=== PATIENT | female | born 1960 | race Caucasian/White ===

== ENCOUNTER 2022-06-24 13:41 | Inpatient (IN) | payer OTHER ==
[~2022-06-24] VITALS: Ht 165.1 cm; Wt 170.4 kg
[2022-06-24 14:10] LABS: BASO % 0.2 % (0.0-2.0); EOS # 0.1 K/mm3 (0.0-0.7); EOS % 1.4 % (0.0-4.0); GRAN # 5.3 K/mm3 (1.4-6.5); GRAN % 62.8 % (42.2-75.2); HEMOGLOBIN 15.5 g/dl (12.5-16.0); LYMPH # 2.5 K/mm3 (1.2-3.4); LYMPH % 28.9 % (20.0-51.0); MEAN CELL VOLUME 88 fl (80.0-100.0); MEAN CORPUSCULAR HEMOGLOBIN 30 pg (27-31); MEAN CORPUSCULAR HGB CONC 34 g/dl (33.0-37.0); MEAN PLATELET VOLUME 10.8 fl (7.4-10.4); MONO # 0.6 K/mm3 (0.1-0.6); MONO % 6.5 % (1.7-9.3); PLATELET COUNT 202 K/mm3 (130-400); RED BLOOD COUNT 5.24 M/mm3 (4.10-5.30); REDCELL DISTRIBUTION WIDTH-CV 12.4 % (11.5-14.5)
[2022-06-24 14:17] LABS: PROTHROMBIN TIME 11.4 SECONDS (9.7-12.8)
[2022-06-24 14:28] LABS: ALBUMIN 3.7 gm/dL (3.4-4.8); BILIRUBIN,TOTAL 0.6 mg/dL (0.2-1.2); CALCIUM 9.5 mg/dL (8.4-10.2); CREATININE, serum 0.87 mg/dL (0.57-1.11); POTASSIUM 4.1 mmol/L (3.5-4.5)
[2022-06-24 14:34] LABS: TROPONIN-I 0.013 ng/mL (0.00-0.033)
[2022-06-24 18:19] VITALS: BP 166/88; PULSE 94; TEMP 98.3
[2022-06-24 19:12] VITALS: BP 156/86; PULSE 92; TEMP 97.9
[2022-06-24 23:27] VITALS: BP 142/67; PULSE 83; TEMP 98
[2022-06-25 03:14] VITALS: BP 144/74; PULSE 73; TEMP 97.9
[2022-06-25 06:48] LABS: CHOLESTEROL RISK RATIO 3.9
[2022-06-25 07:30] VITALS: BP 148/62; PULSE 76; TEMP 98.1
[2022-06-25 11:47] VITALS: BP 130/73; PULSE 87; TEMP 97.4
[2022-06-25 16:22] VITALS: BP 128/65; PULSE 84; TEMP 98.1
[2022-06-25 21:09] VITALS: BP 157/85; PULSE 103; TEMP 98
[2022-06-26] VITALS (8 sets, daily range): BP systolic 97–154; BP diastolic 47–68; PULSE 62–84; TEMP 97.4–98.2
[2022-06-26 02:08] LABS: COLLECTION METHOD CLEAN CATCH
[2022-06-26 02:15] LABS: BUDDING YEAST Present (NOT PRESENT); MUCOUS Present (NOT PRESENT); URINE BACTERIA Many /hpf (NONE SEEN)
[2022-06-26 02:16] LABS: URINE APPEARANCE Cloudy (CLEAR/HAZY); URINE BLOOD TRACE-INTACT (NEGATIVE); URINE COLOR Amber (YELLOW); URINE GLUCOSE TRACE (NEGATIVE); URINE KETONE TRACE (NEGATIVE); URINE NITRATE Positive (NEGATIVE); URINE PROTEIN(semi-quant) TRACE (NEGATIVE); URINE UROBILINOGEN 0.2 E.U/dL (0.2-1.0)
[2022-06-26 11:36] LABS: CALCIUM 9.2 mg/dL (8.4-10.2); CREATININE, serum 0.84 mg/dL (0.57-1.11); MAGNESIUM 1.7 mg/dL (1.6-2.6); POTASSIUM 4.1 mmol/L (3.5-4.5)
[2022-06-26 11:56] LABS: THYROID STIMULATING HORMONE 1.209 uIU/mL (0.350-4.940)
[2022-06-27] VITALS (8 sets, daily range): BP systolic 115–135; BP diastolic 34–68; PULSE 55–74; TEMP 97.6–98.5
[2022-06-27 06:45] LABS: BASO % 0.4 % (0.0-2.0); EOS # 0.2 K/mm3 (0.0-0.7); EOS % 2.1 % (0.0-4.0); GRAN # 5.3 K/mm3 (1.4-6.5); GRAN % 51.3 % (42.2-75.2); HEMATOCRIT 40.6 % (37.0-47.0); LYMPH % 38.6 % (20.0-51.0); MEAN CELL VOLUME 91 fl (80.0-100.0); MEAN CORPUSCULAR HGB CONC 33 g/dl (33.0-37.0); MEAN PLATELET VOLUME 11.8 fl (7.4-10.4); MONO # 0.8 K/mm3 (0.1-0.6); MONO % 7.4 % (1.7-9.3); PLATELET COUNT 206 K/mm3 (130-400); RED BLOOD COUNT 4.48 M/mm3 (4.10-5.30); REDCELL DISTRIBUTION WIDTH-CV 12.8 % (11.5-14.5)
[2022-06-27 06:48] LABS: HEMOGLOBIN 13.2 g/dl (12.5-16.0); MEAN CORPUSCULAR HEMOGLOBIN 29 pg (27-31)
[2022-06-27 06:55] LABS: CALCIUM 8.8 mg/dL (8.4-10.2); CREATININE, serum 0.82 mg/dL (0.57-1.11); POTASSIUM 3.6 mmol/L (3.5-4.5)
[2022-06-28 04:53] VITALS: BP 116/54; PULSE 78; TEMP 97.9
[2022-06-28 06:33] LABS: BASO % 0.5 % (0.0-2.0); EOS # 0.2 K/mm3 (0.0-0.7); EOS % 2.6 % (0.0-4.0); GRAN % 49.4 % (42.2-75.2); HEMATOCRIT 41.5 % (37.0-47.0); HEMOGLOBIN 13.9 g/dl (12.5-16.0); LYMPH # 3.2 K/mm3 (1.2-3.4); LYMPH % 39.9 % (20.0-51.0); MEAN CELL VOLUME 89 fl (80.0-100.0); MEAN CORPUSCULAR HEMOGLOBIN 30 pg (27-31); MEAN CORPUSCULAR HGB CONC 34 g/dl (33.0-37.0); MEAN PLATELET VOLUME 11.9 fl (7.4-10.4); MONO # 0.6 K/mm3 (0.1-0.6); MONO % 7.4 % (1.7-9.3); PLATELET COUNT 208 K/mm3 (130-400); RED BLOOD COUNT 4.69 M/mm3 (4.10-5.30); REDCELL DISTRIBUTION WIDTH-CV 12.6 % (11.5-14.5)
[2022-06-28 06:50] LABS: CALCIUM 8.9 mg/dL (8.4-10.2); CREATININE, serum 0.9 mg/dL (0.57-1.11); POTASSIUM 3.6 mmol/L (3.5-4.5)
[2022-06-28 07:29] VITALS: BP 113/77; PULSE 80; TEMP 97.6
[2022-06-28 11:14] VITALS: BP 131/33; BP 131/83; PULSE 70; TEMP 97.9
[2022-06-28] MEDS ORDERED: ELIQUIS 5MG PO (12:13)
[2022-06-28] MEDS ORDERED: CORDARONE200 MG/TAB PO (12:13)
[2022-06-28] MEDS ORDERED: LIPITOR 40MG TA40 MG PO (12:13)
[2022-06-28] MEDS ORDERED: TOPROL XL 25MG25 MG PO (12:13)
[2022-06-28] MEDS ORDERED: GLUCOPHAGE1000 MG PO (12:14)
[2022-06-28] MEDS ORDERED: ASPIRIN 81M81 MG/TA2 PO (12:14)
[2022-06-28] MEDS ORDERED: ZESTRIL 10MG10 MG PO (12:14)
[2022-06-28] MEDS ORDERED: LEVEMIR100 U/ML SQ (12:14)
[2022-06-28] MEDS ORDERED: INSULIN AS100 UNIT/2 SQ (12:15)
== END 2022-06-28 13:20 | DRG 65 ==
LOC: COL.ER 13:41 → MEDICAL 16:37
PROVIDERS: Nurse Practitioner; Physician Assistant; ADMIT Internal Medicine
DX: I63.81 Other cerebral infarction due to occlusion or stenosis of small artery (principal); I69.351 Hemiplegia and hemiparesis following cerebral infarction affecting right dominant side; N39.0 Urinary tract infection, site not specified; Z68.44 Body mass index [BMI] 60.0-69.9, adult; Z66 Do not resuscitate; I48.91 Unspecified atrial fibrillation; I10 Essential (primary) hypertension; I16.0 Hypertensive urgency; E66.01 Morbid (severe) obesity due to excess calories; B96.20 Unspecified Escherichia coli [E. coli] as the cause of diseases classified elsewhere; R29.700 NIHSS score 0; E11.40 Type 2 diabetes mellitus with diabetic neuropathy, unspecified; Z79.01 Long term (current) use of anticoagulants; Z79.82 Long term (current) use of aspirin; Z79.4 Long term (current) use of insulin; Z23 Encounter for immunization
CPT/HCPCS: A9575; J0696; J1815; J2704

== ENCOUNTER 2022-06-28 13:04 | Inpatient (IN) | payer OTHER ==
[~2022-06-28] VITALS: Ht 165.1 cm; Wt 160.8 kg
--- NOTE | 2022-06-28 13:00 | NUR ---
Pt arrives to IPR room 339 from Medical via WC. Pt Ox4, VSS. IV to RFA intact, flushes easily. Telemetry remains, pt continues in Afib per hall monitor. Pt reports weakness and pain to R arm/leg, has difficulty standing or bearing weight on R leg and reports being scared that she is going to fall. Pt is max 2A for pivot transfer to [facility] Pt eating and drinking well. Is incontinent of bladder but states that she knows she needs to go, that it's urge incontinence.
[~2022-06-28 13:04] MED LIST: ASPIRIN 81M81 MG/TA2 PO; CORDARONE200 MG/TAB PO; ELIQUIS 5MG PO; GLUCOPHAGE1000 MG PO; INSULIN AS100 UNIT/2 SQ; LEVEMIR100 U/ML SQ; LIPITOR 40MG TA40 MG PO; TOPROL XL 25MG25 MG PO; ZESTRIL 10MG10 MG PO
[2022-06-28 17:44] VITALS: BP 141/54; PULSE 81; TEMP 98.6
--- NOTE | 2022-06-28 21:00 | NUR ---
PT A&OX4. SLURRED SPEECH. RT SIDED WEAKNESS. ABLE TO MOVE ARM. NO FINE MOTOR SKILLS. PT INCONTINENT URINE. PLACED PUREWICK FOR THE NIGHT. ACCUCHECK 193. SEE MAR FOR SSI. NO PAIN AT THIS TIME. CALL LIGHT IN REACH. REVIEWED TONIGHT PLAN FOR SSI AND LONG ACTING INSULIN W/RATIONALE.
[2022-06-28 23:13] VITALS: BP 100/52; PULSE 69; TEMP 97.5
[2022-06-29 03:53] VITALS: BP 118/81; PULSE 72; TEMP 97.7
[2022-06-29 07:45] VITALS: BP 154/89; PULSE 88; TEMP 97.7
--- NOTE | 2022-06-29 10:00 | NUR ---
Pt Ox4, VSS, telemetry continues afib/aflutter HR 90's. Pt with c/o intermittent severe pain to R arm and leg, especially when attempting to use it. Continues to have weakness to R side, difficulty standing and keeping balance. Pt is very emotional which also causes her to be more emotional. 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
[2022-06-29 11:26] VITALS: BP 130/79; PULSE 85; TEMP 97.3
--- NOTE | 2022-06-29 14:44 | NUR ---
SW met with the patient to complete intake, as the patient is new to [facility]. The patient lives alone in [place]. She reports independence with ADLs before hospitalization and does not have any DME. The patient reports that she has not been established with a primary care doctor yet. She obtains her medications from [facility]. The patient does not have a DPOA-HC, but she was interested in obtaining a form. LEONOR provided. The patient states that she is not , does not have any children, and her parents are not alive. She states that she has two siblings: Sg (ph#[phone], [place]) and Jurgen (ph#[phone], [place]). The patient shares that she is sleepy and this is the first day she has done all three disciplines and that she threw up afterwards. She had no concerns for SW at this time.
--- NOTE | 2022-06-29 15:51 | NUR ---
Has lack of transportation kept you from medical appts, meetings, work, or from getting things needed for daily living? NO How often do you feel lonely or isolated from those around you? SOMETIMES Over the past 5 days, how much of the time has pain made it hard for you to sleep? RARELY OR NOT AT ALL Over the past 5 days, how often have you limited your participation in therapy due to pain? RARELY OR NOT AT ALL Over the past 5 days, how often have you limited your day-to-day activities because of pain? RARELY OR NOT AT ALL Have you had 2 or more falls in the past year or any fall with an injury? NO Did you have major surgery during the 100 days prior to admission? NO
[2022-06-29 16:00] VITALS: BP 119/52; PULSE 79; TEMP 97.4
[2022-06-29 19:33] VITALS: BP 106/66; PULSE 87; TEMP 97.7
--- NOTE | 2022-06-29 19:57 | NUR ---
MAX 2 ASSIST PIVOT TRANSFER TO BS. HAD LARGE INCONTINENT EXPLOSIVE DIARRHEA. PT WEEPING AND FRUSTRATED. CLEANED UP. LINENS CHANGED. BACK TO BED. 911 DISPATCHER PLACING PUREWICK FOR THE NIGHT. PT HAS MULTIPLE SCABBED SCRATCHES ON ARM AND LOWER LEGS. PT REPORTS HER KITTENS HAVE SCRATCH HER. PT TEAACHING REGARDING IMPORTANCE OF FOOT CARE AND FREQUENT ASSESSMENTS R/T DIABETES. CALL LIGHT IN REACH. BED ALARM SET.
--- NOTE | 2022-06-29 21:56 | NUR ---
PT RESTING IN BED. SEE MAR FOR SSI GIVEN. READY TO SLEEP. CALL LIGHT IN REACH. BED ALARM SET.
[2022-06-29 23:24] VITALS: BP 137/67; PULSE 95; TEMP 97.8
[2022-06-30] VITALS (8 sets, daily range): BP systolic 115–150; BP diastolic 49–83; PULSE 73–106; TEMP 97.3–99.1
--- NOTE | 2022-06-30 10:12 | NUR ---
Provided pt w/ Stroke Education Booklet to assist w/ understanding her stroke & better coping w/ deficits. Pt was greatful & would try to look at it this weekend. Provided support & encouragement.
--- NOTE | 2022-06-30 19:22 | NUR ---
RECEIVED CHANGE OF SHIFT REPORT FROM DAY SHIFT RN. PATIENT IN BED DURING REPORT, EXIT ALARM ON, CALL LIGHT IN REACH.
[2022-07-01 04:50] VITALS: BP 142/73; PULSE 81; TEMP 97.4
--- NOTE | 2022-07-01 07:15 | NUR ---
CHANGE OF SHIFT REPORT GIVEN TO DAY SHIFT RNVELVET.
[2022-07-01 07:55] VITALS: BP 137/74; PULSE 81; TEMP 98.9
--- NOTE | 2022-07-01 08:04 | NUR ---
Shift report received from food mixer assembler RN. Pt is lying supine in bed w/ HOB elevated to approx 30 degrees. Pt is tearful and reporting RUE/LE pain. Scheduled gabapentin given. Pt denies other needs. Call light is in her reach. Bed alarm is on. Will continue to monitor.
--- NOTE | 2022-07-01 09:04 | NUR ---
Pt is off the unit for PT
--- NOTE | 2022-07-01 11:20 | NUR ---
Pt back in room after PT/OT. 2 person assist required for pt to transfer back to bed using a FWW, gait belt. Pt reporting right hip pain and is tearful. Tylenol given per PRN order. Pt positioned supine and is now talking on her cell phone with a friend. She denies additional needs. Call light is in her reach. Bed alarm is on.
[2022-07-01 11:52] VITALS: BP 121/42; PULSE 74; TEMP 98.2
[2022-07-01 15:53] VITALS: BP 122/52; PULSE 71; TEMP 97.3
--- NOTE | 2022-07-01 16:46 | NUR ---
Pt sitting up in bed waiting for dinner. She reports that she "doesn't hurt too much" at this time. She denies additional needs. Call light is in her reach. Bed alarm is on.
--- NOTE | 2022-07-01 17:27 | NUR ---
Pt refusing dinner tray. She would instead like 3-4 pieces of toast - order placed for pt. Pt currently drinking chocolate Glucerna. Other needs denied. Call light is in her reach.
[2022-07-01 19:08] VITALS: BP 120/53; PULSE 78; TEMP 98.2
--- NOTE | 2022-07-01 19:23 | NUR ---
RECEIVED CHANGE OF SHIFT REPORT FROM DAY SHIFT RN. PATIENT RESTING IN BED, EXIT ALARM ON, CALL LIGHT IN REACH.
--- NOTE | 2022-07-01 20:52 | NUR ---
PATIENT VOMITED LARGE AMOUNT OF SEMILUMPY GREYISH EMESIS AFTER INITIALLY REPORTED SOME "UNSETTLED" STOMACH COMPLAINTS BUT REFUSED ZOFRAN. REPORTS HAD BEEN PASSING FLATUS INTERMITTELY.
[2022-07-01 21:29] VITALS: BP 127/64; PULSE 75; TEMP 98.1
--- NOTE | 2022-07-01 21:35 | NUR ---
ONCALL PROVIDER INFORMED OF PATIENT'S SUDDEN ONSET OF EMESIS, RECENT VS REPORTED, AND PATIENT CURRENT STATUS OF NO FURTHER NAUSEA BUT REPORTS FEELING VERY TIRED, DENIES CHILLING/CHEST PAIN/SOA/PASSING FLATUS, ABD SOFT TO PALP AND RECENT LUNG ASSESSMENT OF EXP WHEEZING OBSERVED AND THAT ZOFRAN ODT GIVEN. ORDERS GIVEN TO HOLD SSI INSULIN FOR THIS DOSING BUT OKAY TO GIVE LEVEMIR.
[2022-07-01 21:59] LABS: BASO % 0.2 % (0.0-2.0); EOS # 0.2 K/mm3 (0.0-0.7); EOS % 1.7 % (0.0-4.0); GRAN # 7.6 K/mm3 (1.4-6.5); GRAN % 67.4 % (42.2-75.2); HEMATOCRIT 42.5 % (37.0-47.0); HEMOGLOBIN 14.4 g/dl (12.5-16.0); LYMPH # 2.5 K/mm3 (1.2-3.4); LYMPH % 22.3 % (20.0-51.0); MEAN CELL VOLUME 87 fl (80.0-100.0); MEAN CORPUSCULAR HEMOGLOBIN 30 pg (27-31); MEAN CORPUSCULAR HGB CONC 34 g/dl (33.0-37.0); MONO # 0.9 K/mm3 (0.1-0.6); MONO % 8.3 % (1.7-9.3); PLATELET COUNT 212 K/mm3 (130-400); RED BLOOD COUNT 4.86 M/mm3 (4.10-5.30); REDCELL DISTRIBUTION WIDTH-CV 12.6 % (11.5-14.5)
[2022-07-01 22:13] LABS: CALCIUM 9.1 mg/dL (8.4-10.2); CREATININE, serum 0.85 mg/dL (0.57-1.11); POTASSIUM 4.3 mmol/L (3.5-4.5)
--- NOTE | 2022-07-02 00:35 | NUR ---
SPOKE WITH PROVIDER REGARDING LABS AND CXR, NO CHANGES ORDERS AT THIS TIME. PATIENT RESTING IN BED, BREATHING NONLABORED.
[2022-07-02 00:37] VITALS: BP 143/64; PULSE 82; TEMP 98.1
[2022-07-02 03:10] VITALS: BP 139/63; PULSE 83; TEMP 97.9
--- NOTE | 2022-07-02 06:42 | NUR ---
CHANGE OF SHIFT REPORT GIVEN TO DAY SHIFT RNVELVET. PATIENT SLEEPING DURING REPORT, EXIT ALARM ON WITH CALL LIGHT IN REACH.
--- NOTE | 2022-07-02 06:52 | NUR ---
Shift report received from maintenance mechanic 2nd shift RN. Pt awoke easily from sleeping. She denies abd. pain/discomfort. Denies nausea and other needs. Call light is in her reach. Bed alarm is on.
[2022-07-02 07:06] VITALS: BP 150/63; PULSE 74; TEMP 97.9
--- NOTE | 2022-07-02 07:43 | NUR ---
Pt refusing her breakfast tray. She stated that she "took a few bites and it just isn't tasting good". Glucerna and diet Sprite given. Pt continues to deny abd. pain and nausea. Will continue to monitor.
--- NOTE | 2022-07-02 09:01 | NUR ---
Pt requesting to use the bedside commode. Pt required moderate asst x 2 people to transfer from bed to commode and back to bed. Pt was continent of a large, watery BM. Stool spec sent to lab for previously ordered GI Panel. Pt continues to deny nausea, abd. pain. Abd. is soft, NT, w/ active BS x 4. Pt reporting right hip pain - Tylenol given per PRN order. She denies additional needs. Call light is in her reach. Bed alarm is on.
[2022-07-02 11:11] LABS: CLOSTRIDIUM DIFF A/B NEG
[2022-07-02 11:25] VITALS: BP 143/60; PULSE 81; TEMP 97.4
--- NOTE | 2022-07-02 11:36 | NUR ---
Pt sleeping supine in bed. HOB elevated to approx 30 degrees. No further vomiting or watery stools so far. Call light is in her reach. Bed alarm is on. C. Diff test result is still pending.
--- NOTE | 2022-07-02 12:28 | NUR ---
Pt refusing lunch (veg. soup, pulled pork sandwich, june slaw). States the food does not taste good. Pt agreeable to eating toast - order placed. Glucerna and diet Sprite given. Encouraged pt to increase fluid intake. C. Diff. cx negative. Pt continues to deny nausea or abd. pain. Abd remains soft, NT, with active BS x 4. She denies additional needs. Call light is in her reach. Bed alarm is on.
--- NOTE | 2022-07-02 14:40 | NUR ---
Pt sitting up in bed. She drank 100% of glucerna and has eaten 1/2 a piece of toast. Pt continues to deny abd. pain or nausea. No further vomiting episodes or watery stools. Pt has 2 visitors in her room and denies additional needs. Call light is in her reach. Bed alarm is on.
[2022-07-02 15:17] VITALS: BP 129/70; PULSE 80; TEMP 97.8
--- NOTE | 2022-07-02 15:29 | NUR ---
Pt's brother and daughter expressing concerns about pt's right hand position when she is bed. They are concerned that her right hand tends to stay in a "claw" postion vs. having the fingers extended. They are wondering if there is a splint that pt could wear while in bed to keep her fingers in an extended position. Foam arm support placed under RUE for pt to try for now. Will pass on during shift report to mention to PT/OT tomorrow (Sunday).
--- NOTE | 2022-07-02 16:21 | NUR ---
Pt sitting up in bed. Pt eating saltine crackers. Pt denies pain and denied Tylenol when offered. She also denies abd. pain, nausea. No other needs at this time. Call light is in her reach. Bed alarm is on.
--- NOTE | 2022-07-02 18:27 | NUR ---
Hospitalist in to see pt. Pt reported nausea. Zofran given per PRN order.
[2022-07-02 20:19] VITALS: BP 140/72; PULSE 86; TEMP 98.3
[2022-07-03] VITALS (7 sets, daily range): BP systolic 112–149; BP diastolic 58–76; PULSE 78–89; TEMP 97.9–98.3
--- NOTE | 2022-07-03 07:05 | NUR ---
BEDSIDE REPORT DONE ORDER WITH NIGHT NURSE LIGIA
--- NOTE | 2022-07-03 08:40 | NUR ---
ASSESSMENT DONE ORDER. PATIENT IS ALERT AND ORIENTED BUT VERY TEARFULL. PATIENT STATED THAT HER PAIN IS HIGH 7/10 ON PAIN SCALE AND ITS RIGHT SIDE AND STOMACH AREA. PATIENT STATED SHE STARTED TO VOMITED OVER THE WEEKEND. STILL NOT FEELING WELL. GAVE HER TYLENOL FOR PAIN. DID NOT EAT THIS AM. ONLY TOOK A SMALL BITE OF CRACKLES. LUNG CLEAR IN ALL LOBES. BOWEL SOUND ACTIVE BUT VERY SLOW ACTIVE SOUND.
[2022-07-03 10:13] LABS: BASO % 0.1 % (0.0-2.0); EOS # 0.2 K/mm3 (0.0-0.7); EOS % 1.5 % (0.0-4.0); GRAN # 7.9 K/mm3 (1.4-6.5); GRAN % 67.9 % (42.2-75.2); HEMATOCRIT 42.7 % (37.0-47.0); HEMOGLOBIN 14.6 g/dl (12.5-16.0); LYMPH # 2.5 K/mm3 (1.2-3.4); LYMPH % 21.7 % (20.0-51.0); MEAN CELL VOLUME 88 fl (80.0-100.0); MEAN CORPUSCULAR HEMOGLOBIN 30 pg (27-31); MEAN CORPUSCULAR HGB CONC 34 g/dl (33.0-37.0); MEAN PLATELET VOLUME 11.4 fl (7.4-10.4); MONO % 8.6 % (1.7-9.3); PLATELET COUNT 231 K/mm3 (130-400); RED BLOOD COUNT 4.84 M/mm3 (4.10-5.30); REDCELL DISTRIBUTION WIDTH-CV 12.7 % (11.5-14.5)
[2022-07-03 10:34] LABS: BILIRUBIN,TOTAL 1.1 mg/dL (0.2-1.2); C-REACTIVE PROTEIN 3.13 mg/dL (0.00-0.50); CALCIUM 9.5 mg/dL (8.4-10.2); CREATININE, serum 0.91 mg/dL (0.57-1.11); POTASSIUM 4.6 mmol/L (3.5-4.5); TOTAL PROTEIN 6.5 gm/dL (6.2-8.1); URIC ACID 4.5 mg/dL (2.6-6.0)
[2022-07-03 10:37] LABS: ERYTHROCYTE SEDIMENTATION RATE 20 mm/hr (0-30)
--- NOTE | 2022-07-03 11:08 | NUR ---
LEONOR met with the patient to follow up after the weekend. The patient states that she is not doing too well today. She states that her stomach hurts and her arm and leg are not working right. She provides she feels worse now than when she first came in. She is hopeful to start feeling better soon. SW provided support.
--- NOTE | 2022-07-03 14:52 | NUR ---
Admission QIM scores were reviewed by the team. Code of 2 chosen for toilet transfer was determined by team discussion to be the most usual performance before interventions for this patient during the assessment period. Code of 2 chosen for lower body dressing was determined by team discussion to be the most usual performance before interventions for this patient during the assessment period. Code of 1 chosen for rolling left to right was determined by team discussion to be the most usual performance before interventions for this patient during the assessment period. Code of 3 chosen for sit to lying was determined by team discussion to be the most usual performance before interventions for this patient during the assessment period. Code of 2 chosen for lying to sitting on side of bed was determined by team discussion to be the most usual performance before interventions for this patient during the assessment period. Code of 2 chosen for sit to stand was determined by team discussion to be the most usual performance for this patient during the discharge assessment period. Code of 2 chosen for chair/bed to chair transfer was determined by team discussion to be the most usual performance before interventions for this patient during the assessment period.--Chastity Paul, PD
--- NOTE | 2022-07-03 18:28 | NUR ---
PATIENT WAS COMPLAINING OF PAIN THROUGHOUT THE MORNING .REFUSED TO EAT BREAKFAST. HELD ALL MEDICATION UNTIL SHE ATE SOMETHING. SPOKE WITH DOCTOR WHO ORDER XRAY ON STOMACH AND HIP. LABS FOR GOUT. NEW MEDICATIONW ORDER. PATIENT HAS BEEN EATING TOAST X 2 WHICH HAS HELP. ZOFRAN WAS USE X 1 TODAY.
[2022-07-04 02:58] VITALS: BP 122/48; PULSE 76; TEMP 97.8
--- NOTE | 2022-07-04 06:51 | NUR ---
BEDSIDE REPORT DONE ORDER WIT NIGHT NURSE
[2022-07-04 07:27] VITALS: BP 133/55; PULSE 89; TEMP 98.6
--- NOTE | 2022-07-04 10:56 | NUR ---
ASSESSMENT DONE ORDER .PATIENT ALERT AND ORIENTED BUT HAVE BEEN HAVING ALOT OF PAIN TODAY. NEW ORDER FOR LORATAB JORDON MEDICATION AND HEART MEDICATION WAS DONE. EKG WAS DONE SINCE THE PATIENT HAD CHEST PAIN. TROPONIN WAS DONE TOO. ALL CAME BACK NORMAL.
[2022-07-04 11:34] VITALS: BP 119/64; PULSE 88; TEMP 98.3
[2022-07-04 16:11] VITALS: BP 107/47; PULSE 86; TEMP 97.7
--- NOTE | 2022-07-04 17:15 | NUR ---
PATIENT USE COMMONDE TODAY BUT WITH 3 PERSON(MAX ASSISTANCE) PATIENT DID WELL WITH MINIMAL PAIN. LAST DOSE OF PAIN MEDICATION WAS AROUND 3PM. PATIENT HAD A REALLY GOOD NAP TODAY. EATING ABOUT 80-100% OF HER FOOD NOW.
--- NOTE | 2022-07-04 19:00 | NUR ---
RECEIVED CHANGE OF SHIFT REPORT FROM DAY SHIFT RN.
[2022-07-04 20:15] VITALS: BP 134/51; PULSE 70; TEMP 97.6
[2022-07-04 23:46] VITALS: BP 117/42; PULSE 75; TEMP 97.6
[2022-07-05 04:22] VITALS: BP 120/49; PULSE 70; TEMP 98.4
--- NOTE | 2022-07-05 06:53 | NUR ---
BEDSIDE REPORT DONE ORDER WITH MICHAEL
--- NOTE | 2022-07-05 07:11 | NUR ---
CHANGE OF SHIFT REPORT GIVEN TO DAY SHIFT RNROSELINE.
[2022-07-05 07:36] VITALS: BP 112/59; PULSE 81; TEMP 97.8
--- NOTE | 2022-07-05 10:32 | NUR ---
ASSESSMENT DONE ORDER. PATIENT ALERT AND ORIENTED X 4. FINESSE CONTINUE TO HAVE PAIN 6-7/10 AND PAIN MEDICATION HAS BEEN HELPING. LUNG CLEAR, BOWEL SUOND ACTIVE. NO CHEST PAIN TODAY. EATING ABOUT 80-100% OF HER FOOD.
[2022-07-05 11:54] VITALS: BP 107/67; PULSE 84; TEMP 97.9
--- NOTE | 2022-07-05 12:50 | NUR ---
GAVE PATIENT JA TO HELP WTIH N/V.
--- NOTE | 2022-07-05 12:59 | NUR ---
patient vomited x 1 while eating lunch. offer zofran but patient refused and said she is not nauseas but will try and continue to eat her food but in small bites
--- NOTE | 2022-07-05 14:31 | NUR ---
LEONOR met with the patient to present and review the IPR Team Conference Note. The team plans to re-evaluate the patient next Sunday. The patient is in agreement to the plan. She shares that she is still not feeling great and threw up this morning. SW provided support.
[2022-07-05 16:20] VITALS: BP 140/56; PULSE 79; TEMP 97.6
--- NOTE | 2022-07-05 16:34 | NUR ---
RECEIVED ORDER TO D/C TELE. I ALSO D/C IV SITE SINCE THE IV WAS NOT IN PLACE ANYMORE. INFORM DOCTOR ABOUT IT.
--- NOTE | 2022-07-05 16:38 | NUR ---
JA QUINONEZ, PATIENT HAS BEEN RESTING SINCE GIVEN THE MEDICATION
--- NOTE | 2022-07-05 19:00 | NUR ---
RECEIVED CHANGE OF SHIFT REPORT FROM DAY SHIFT RN. RESTING IN BED DURING REPORT WITH EXIT ALARM ON, CALL LIGHT IN REACH.
[2022-07-06 05:08] VITALS: BP 136/66; PULSE 88; TEMP 97.9
--- NOTE | 2022-07-06 07:09 | NUR ---
Shift report received from warehouse worker 2nd shift RN.
--- NOTE | 2022-07-06 07:11 | NUR ---
CHANGE OF SHIFT REPORT GIVEN TO DAY SHIFT RNVELVET.
--- NOTE | 2022-07-06 07:59 | NUR ---
Pt resting supine in bed w/ HOB elevated. She ate approx 50% of breakfast independently. Pt tearful this morning and reporting right hip, right knee, left ankle pain. Voltaren gel applied as ordered. PRN [place] given. Pt denies nausea, abd. pain. Call light is in her reach. Bed alarm is on.
--- NOTE | 2022-07-06 08:34 | NUR ---
ST in room working w/ pt. Pt reports no pain relief in right hip, right knee, left ankle. Additional [place] given per PRN order. Will continue to monitor.
--- NOTE | 2022-07-06 10:20 | NUR ---
Pt required max 2 asst to transfer to wheelchair. OT in room to work w/ pt. Initial dose of Prednisone given. Pt medication education sheet given to pt. Side effects discussed. Pt continues to report Rt. hip pain and rt. knee pain. Hip xr still pending.
[2022-07-06 12:07] LABS: BASO % 0.3 % (0.0-2.0); EOS # 0.3 K/mm3 (0.0-0.7); EOS % 2.2 % (0.0-4.0); GRAN # 8.7 K/mm3 (1.4-6.5); GRAN % 75.4 % (42.2-75.2); HEMATOCRIT 39.8 % (37.0-47.0); HEMOGLOBIN 13.6 g/dl (12.5-16.0); LYMPH # 1.7 K/mm3 (1.2-3.4); LYMPH % 15.1 % (20.0-51.0); MEAN CELL VOLUME 88 fl (80.0-100.0); MEAN CORPUSCULAR HEMOGLOBIN 30 pg (27-31); MEAN CORPUSCULAR HGB CONC 34 g/dl (33.0-37.0); MEAN PLATELET VOLUME 11.1 fl (7.4-10.4); MONO # 0.8 K/mm3 (0.1-0.6); MONO % 6.7 % (1.7-9.3); PLATELET COUNT 248 K/mm3 (130-400); RED BLOOD COUNT 4.54 M/mm3 (4.10-5.30); REDCELL DISTRIBUTION WIDTH-CV 12.6 % (11.5-14.5)
[2022-07-06 12:19] LABS: CALCIUM 9.2 mg/dL (8.4-10.2); CREATININE, serum 0.93 mg/dL (0.57-1.11); POTASSIUM 4.8 mmol/L (3.5-4.5)
--- NOTE | 2022-07-06 13:06 | NUR ---
Rt hip XR completed. Pt requesting pain medication post XR and before PT in 45 minutes. [place] given per PRN order for pain of 7/10. Pt resting supine w/ HOB elevated to 30 degrees. Denies other needs. Call light is in her reach. Bed alarm is on.
--- NOTE | 2022-07-06 14:41 | NUR ---
Pt back in her room after PT. She is sitting up in the wheelchair and would like to sit up for awhile. Pt reports she feels less RLE/Hip pain while she is sitting up. She declined sitting in the recliner. Pt denies other needs. Call light is in her reach. Chair alarm is on.
[2022-07-06 17:17] VITALS: BP 132/71; PULSE 88; TEMP 97.8
--- NOTE | 2022-07-06 18:40 | NUR ---
Pt assisted from wheelchair to bed using 2 person asst, BECKA. Pt resting supine. Incontinence care provided after pt noted to be incontinent of urine. Pure wick applied. Pt denies the need for pain medication at this time. Denies nausea or abd. pain. Denies additional needs. Call light is in her reach. Bed alarm is on.
--- NOTE | 2022-07-06 19:07 | NUR ---
RECEIVED CHANGE OF SHIFT FROM DAY SHIFT RN.
--- NOTE | 2022-07-06 20:00 | NUR ---
WEAKNESS TO RUE AND RLE, REPORTS PAIN TO L ANKLE/R KNEE/R THUMB/R UPPER ARM WITH MOVEMENT. DENIES CHEST PAIN/SOA/NAUSEA AT THIS TIME. PURE WICK IN PLACE, NO URINE OUTPUT OBSERVED AT THIS TIME. DENIES DISCOMFORT BUT AGREED TO TAKE PAIN MEDS WITH HS MEDS FOR COMFORT WITH SLEEP.
--- NOTE | 2022-07-07 00:33 | NUR ---
PATIENT SLEEPING, EXIT ALARM ON WHEN IN BED OR UP IN CHAIR WITH CALL LIGHT IN REACH. CURRENTLY WITH SLEEP, DOES NOT WAKE DURING NURSING ROUNDS.
[2022-07-07 05:57] VITALS: BP 134/68; PULSE 69; TEMP 99.3
--- NOTE | 2022-07-07 06:54 | NUR ---
CHANGE OF SHIFT REPORT GIVEN TO DAY SHIFT RNVELVET.
--- NOTE | 2022-07-07 07:07 | NUR ---
Shift report received from final expense agent RN.
--- NOTE | 2022-07-07 07:57 | NUR ---
Pt sitting up in bed eating her breakfast independently. Pt tearful and reporting that sitting up has triggered RUE pain. Pt also reporting RLE pain and Left ankle pain. PRN [place] given. Voltaren gel applied as ordered. Pt denies nausea, abd. pain, chest pain. She denies other needs. Call light is in her reach. Bed alarm is on.
[2022-07-07 09:18] VITALS: TEMP 97.3
--- NOTE | 2022-07-07 11:43 | NUR ---
Pt is sitting up in the wheelchair watching television. She denies pain or discomfort at this time. FSBS 211 - will give SSI per order. No c/o abd. pain or nausea. Call light is in her reach. Chair alarm is on.
[2022-07-07 18:01] VITALS: BP 108/53; PULSE 84; TEMP 97.8
[2022-07-08 06:04] VITALS: BP 130/68; PULSE 72; TEMP 97.8
--- NOTE | 2022-07-08 08:55 | NUR ---
PATIENT ALERT AND ORIENTED X4. VSS. PATIENT HERE FOR CVA. PATIENT DENIES ANY PAIN. ASSESSMENT PERFORMED. AM MEDS ADMINISTERED. PATIENT DENIES ANY FURTHER NEEDS. BED ALARM ACTIVATED. CALL LIGHT IN REACH.
--- NOTE | 2022-07-08 16:08 | NUR ---
PATIENT REFUSED HYGIENE TODAY. WILL RETURN LATER TO PERFORM BED BATH. PATIENT ENCOURAGED TO SIT UP TO CHAIR. PATIENT INSISTED THAT THEY NEEDED TO LIE DOWN. WHEN ASKED THEIR REASONING, PATIENT BECAME TEARFUL AND BEGAN WEEPING. PATIENT EDUCATED ON IMPORTANCE OF GAINING STRENGTH THROUGHOUT STAY ON IPR. PATIENT IN BED, CALL LIGHT IN REACH.
[2022-07-08 18:00] VITALS: BP 125/64; PULSE 84; TEMP 98.2
--- NOTE | 2022-07-08 20:00 | NUR ---
PT VERY DEPRESSED. CRYING FREQUENTLY. PROVIDED EMOTIOBNAL SUPPORT. REMERON FOR ANTIDEPRESSANT. PT TURNED TO CLEAN UP URINARY INCONTINENCE. PT YELLS OUT RT HIP PAIN. CRYING. PUREWICK PLACED. LAST BM WAS 07/02LR WATERY STOOL. ABD SOFT. BS PRESENT. PASSING FLATUS. SEE MAR FOR [place] GIVEN. REPOSITIONED 2;1 ASSIST. CALL LIGHT IN REACH. BED ALARM SET.
[2022-07-09 01:48] VITALS: BP 122/49; PULSE 88; TEMP 98.3
--- NOTE | 2022-07-09 01:48 | NUR ---
PT C/O MID CHEST PAIN. LEVEL 4. NO DYSPNEA. VS 122/[id number]%- 98.3. NOTIFIED ESTEE FIGUEROA. SEE NEW ORDERS.
--- NOTE | 2022-07-09 01:55 | NUR ---
RT HERE FOR EKG.
--- NOTE | 2022-07-09 02:03 | NUR ---
SEE MAR FOR ASA GIVEN. LAB HERE TO DRAW BLOOD FOR TROPONIN. PT RELATES STILL HAVING CHEST PAIN LEVEL 4. UNCHANGED.
--- NOTE | 2022-07-09 02:08 | NUR ---
PT REPORTS CHEST PAIN EASING UP SOME TO LEVEL 2.
--- NOTE | 2022-07-09 02:31 | NUR ---
PUREWICK LEAKING. CHANGED LINENS AND CLEANED UP PT. YELLS OUT IN RT HIP PAIN. REPOSITIONED UP IN BED. PT RELATES CHEST PAIN RESOLVED. CALL VLIGHT IN REACH. BED ALARM SET.
[2022-07-09 05:03] VITALS: BP 123/59; PULSE 87; TEMP 98.1
--- NOTE | 2022-07-09 06:53 | NUR ---
Shift report received from retail shift supervisor RN. Pt sleeping supine in bed. HOB slightly elevated. Resp. even and unlabored. Call light within reach. Bed alarm on.
--- NOTE | 2022-07-09 08:12 | NUR ---
Pt sitting up in bed eating breakfast independently. She reports feeling tired this morning because she didn't sleep well overnight. Pt reports having chest pain during the night but is feeling better. She is reporting right hip, right elbow, and right knee pain at 8/10. [place] given per PRN order. Pt denies additional needs. Call light is in her reach. Bed alarm is on.
--- NOTE | 2022-07-09 10:48 | NUR ---
Pt sitting up in bed watching television. Pt is tearful and reports feeling tired today. Encouraged pt to rest/nap. She denies pain or discomfort. Voltaren gel applied as per order. She denies additional needs. Call light is in her reach. Bed alarm is on.
--- NOTE | 2022-07-09 12:36 | NUR ---
Pt resting supine in bed w/ HOB elevated to approx 30 degrees. Pt ate approx 30% of lunch independently. She denies pain, chest pain, difficultly breathing, nausea, abd. pain. Continues to report feeling tired. Encouraged pt to rest. Pt reported visual hallucinations to hospitalist this morning but states this has resolved. Will continue to monitor. Call light is in her reach. Bed alarm is on.
--- NOTE | 2022-07-09 13:14 | NUR ---
Pt sleeping supine. HOB slightly elevated. Resps are even and unlabored. Call light within reach. Bed alarm is on.
--- NOTE | 2022-07-09 14:58 | NUR ---
Pt resting supine in bed watching television. As nurse was in room, pt was incontinent of urine in bed. Incontinent care provided and clean linens placed on bed. Pt reported "for the first time, my hip doesn't hurt when you move me!". [place] applied at pt's request. Pt denies any further visual hallucinations at this time. She denies additional needs. Call light is in her reach. Bed alarm is on.
--- NOTE | 2022-07-09 16:28 | NUR ---
Pt sitting up in bed watching television. She denies pain/discomfort. Denies chest pain, nausea, headache, visual hallucinations. Discussed w/ pt that the prednisone has been stopped for not in case this was the cause of the hallucinations. Pt voiced understanding. FSBS 243 mg/dL. Will administer SSI per order. She denies additional needs. Call light is in her reach. Bed alarm is on.
[2022-07-09 17:29] VITALS: BP 138/74; PULSE 84; TEMP 98.9
--- NOTE | 2022-07-09 21:00 | NUR ---
PT RESTING IN BED. RT SIDED HEMAPARESIS. ACCUCHECK 242. SSI. PUREWICK IN PLACE. NO PAIN. CALL LIGHT IN REACH. BED ALARM SET.
--- NOTE | 2022-07-09 21:15 | NUR ---
PT RESTING IN BED. WEEPY. DEPRESSED. RT SIDED WEAKNESS. DENIES PAIN. PUREWICK IN PLACE FOR INCONTINENCE. PROVIDED EMOTIONAL SUPPORT. ACCUCHECK 242. SSI GIVEN. CALL LIGHT IN REACH. BED ALARM SET.
[2022-07-10 05:15] VITALS: BP 130/78; PULSE 68; TEMP 97.6
--- NOTE | 2022-07-10 05:54 | NUR ---
ACCUCHECK 85. ASYMPTOMATIC. GAVE A SMALL OJ UNTIL BREAKFAST. REPOSITIONED. NO NEEDS AT THIS TIME. HAD UNEVENTFUL NIGHT.
--- NOTE | 2022-07-10 07:08 | NUR ---
Shift report received from shuttle spotter RN. Pt aroused easily from sleep. She has nearly finished drinking some orange juice after night RN obtained her morning FSBS. Pt denies pain/discomfort. Denies additional needs. Call light is in her reach. Bed alarm is on.
--- NOTE | 2022-07-10 09:55 | NUR ---
PT is off the unit for PT.
--- NOTE | 2022-07-10 12:47 | NUR ---
Pt sitting up in her wheelchair eating lunch. Pillow place beneath RLE for comfort. She denies pain/discomfort, chest pain, nausea, headache. Denies other needs. Call light is in her reach.
--- NOTE | 2022-07-10 14:21 | NUR ---
Pt is back in her room after completing PT for the afternoon. She would like to stay up in her wheelchair for a while longer. She denies pain/discomfort, hallucinations, RAMSAY, chest pain, nausea. Call light is in her reach.
--- NOTE | 2022-07-10 15:57 | NUR ---
Wax Pattern Coater met with Patient in her room to discuss discharge planning. Patient reported that she needs to get better. SW briefed that this SW will follow through treatment in order to coordinate and assist with discharge needs.
--- NOTE | 2022-07-10 16:03 | NUR ---
Pt required 2 person assist to stand from wheelchair and pivot to bed. Pt now resting supine with HOB slightly elevated. Pt was incontinent of urine; incontinence care provided. She denies pain, chest pain, nausea. Denies additional needs. Call light is in her reach. Bed alarm is on.
[2022-07-10 17:28] VITALS: BP 107/41; PULSE 79; TEMP 98.9
--- NOTE | 2022-07-10 18:21 | NUR ---
Pt sleeping supine in bed with HOB slightly elevated. She aroused easily from sleep. Purewick in place with little to no urine output noted yet. Bed is clean and dry. Call light is in her reach. Bed alarm is on.
--- NOTE | 2022-07-10 19:26 | NUR ---
RECEIVED CHANGE OF SHIFT REPORT FROM DAY SHIFT RN.
[2022-07-11 05:37] VITALS: BP 119/65; PULSE 86; TEMP 97.6
--- NOTE | 2022-07-11 06:51 | NUR ---
Shift report received from night cleaner RN. Pt sleeping supine in bed. HOB elevated to approx 30 degrees. Call light in reach. Bed alarm on.
--- NOTE | 2022-07-11 07:05 | NUR ---
CHANGE OF SHIFT REPORT GIVEN TO DAY SHIFT RNVELVET.
--- NOTE | 2022-07-11 08:20 | NUR ---
Pt assisted to BSC and had a continent Lg BM. Pt required 2 person assist to the BSC and then 3 person assist for hygiene and transfer back to bed. Pt tearful and feeling like her BLE are weaker today. She denies BLE pain, chest pain, abd. pain. Pt sitting up in bed eating her breakfast independently. She denies other needs. Call light is in her reach. Bed alarm is on.
--- NOTE | 2022-07-11 14:46 | NUR ---
Pt sitting up the wheelchair visiting with family friends. She denies pain or discomfort. Baclofen and Gabapentin given as scheduled. Pt denies additional needs. Call light is in her reach. Chair alarm is on.
[2022-07-11 17:33] VITALS: BP 118/57; PULSE 78; TEMP 97.5
--- NOTE | 2022-07-11 18:33 | NUR ---
Pt sleeping supine in bed w/ HOB slightly elevated. Pt aroused easily from bed. Bedding is clean and dry. Purewick is turned on. Pt denies pain, chest pain, abd. pain, nausea. Denies other needs. Call light is in her reach. Bed alarm is on.
[2022-07-12 06:05] VITALS: BP 122/72; PULSE 71; TEMP 97.3
--- NOTE | 2022-07-12 07:11 | NUR ---
Shift report received from welder 2nd shift RN.
--- NOTE | 2022-07-12 07:28 | NUR ---
CHANGE OF SHIFT REPORT GIVEN TO DAY SHIFT RNVELVET.
--- NOTE | 2022-07-12 10:59 | NUR ---
OT notifed nurse that pt vomited (food contents, non-bloody) this morning. Emesis was a large amount. Pt denies abdominal pain or nausea. Zofran was given. Pt is currently off the unit for PT/OT
--- NOTE | 2022-07-12 15:44 | NUR ---
Senior Administrative Services Officer met with Patient at bedside to discuss discharge planning. SW collaborated with Patient to review notes provided by the IPR treatment team and identified that discharge will be re-evaluated one week from today. Patient had no concerns for SW. SW will follow.
[2022-07-12 17:22] VITALS: BP 121/43; PULSE 85; TEMP 97.5
--- NOTE | 2022-07-12 21:00 | NUR ---
PT VERY SLEEPY. ACCUCHECK 118. GAVE YOGURT. ATE 100%. VSS. NO COMPLAINTS. PUREWICK IN PLACE FOR INCONTINENCE. CALL LIGHT IN REACH. BED ALARM SET.
[2022-07-13 05:46] VITALS: BP 111/57; PULSE 77; TEMP 97.9
--- NOTE | 2022-07-13 05:57 | NUR ---
ACCUCHECK 81 THIS AM. GAVE OJ TO HOLD OVER TIL BREAKFAST.
--- NOTE | 2022-07-13 06:05 | NUR ---
PT HAD MINIMAL UO THROUGH THE NIGHT. PUREWICK WAS IN PLACE. SHEETS DRY. WILL BLADDER SCAN PT.
--- NOTE | 2022-07-13 06:11 | NUR ---
BLADDER SCAN SHOWED 710[facility] RESIDUAL. BANKING PIN ADJUSTER'S WILL GET PT UP TO BSC TO SEE IF SHE CAN VOID.
--- NOTE | 2022-07-13 06:40 | NUR ---
2:1 ASSIST TO BSC. PT ABLE TO VOID 550CC W/O DIFFICULTY.
--- NOTE | 2022-07-13 06:48 | NUR ---
BEDSIDE REPORT DONE ORDER WITH NIGHT NURSE LIANA
--- NOTE | 2022-07-13 09:45 | NUR ---
ASSESSMENT DONE ORDER. PATIENT ABLE TO GET UP WITH ASSISTANCE TODAY FROM BED TO WHEELCHAIR. STILL NEED HELP TRANSFERING FROM TIME TO TIME. LUNG CLEAR IN ALL LOBES. BOWEL SOUND ACTIVE IN ALL 4 QUADS.
--- NOTE | 2022-07-13 14:55 | NUR ---
Member Of The Legislative Council collaborated with PAtient in a discussion reguarding the application and coverage of Medicaid. Patient requested to be referred to Financial [employer]cel[employer] for assistance with Medicaid molly. SW contacted [employer] who agreed to meet with Patient.
[2022-07-13 17:53] VITALS: BP 129/49; PULSE 93; TEMP 97.6
--- NOTE | 2022-07-13 19:13 | NUR ---
PATIENT HAD A LOOSE LARGE BOWEL MOVEMENT TODAY IN THE SHOWER. BOTTOM IS RED AND IRRATED DUE TO IT. DSYTIN CREAM WAS PLACE ON ORDER. BLOOD SUGAR HAS BEEN IN GOOD RANGE TODAY. EVEN BLOOD SUGAR WAS 101
--- NOTE | 2022-07-13 21:00 | NUR ---
PT RESTING IN BED. ACCUCHECK 125. NO SSI. PERICARE PROVIDED. SL RED IN LABIAL AREA. DESITIN APPLIED. PUREWICK PLACED. RT SIDED WEAKNESS. SPEECH ALITTLE SLURRED. DENIES PAIN AT THSI TIME. CALL LIGHT IN REACH. BED ALARM SET.
[2022-07-14 06:02] VITALS: BP 140/59; PULSE 81; TEMP 98.2
--- NOTE | 2022-07-14 06:48 | NUR ---
BEDSIDE REPORT DONE ORDER. PATIENT RESTING IN BED WITH CALL LIGHT IN REACH
--- NOTE | 2022-07-14 10:12 | NUR ---
ASSESSMENT DONE ORDER. PATIENT ALERT AND ORIENTED IN CHAIR TODAY WITH THERAPY. NEED TWO PERSON ASSISTANCE GETTING UP FROM BED TO CHAIR. STILL HAVING PAIN WHEN MOVEMENT. REFUSED MEDICATION AT THIS TIME. VERY TEARFUL TODAY
--- NOTE | 2022-07-14 15:57 | NUR ---
Imaging Nurse followed up with patient prior to the weekend. Patient advised financial counseling met with her to start Medicaid application. Patient has no further questions or concerns at this time.
[2022-07-14 17:30] VITALS: BP 111/47; PULSE 79; TEMP 98.1
--- NOTE | 2022-07-15 01:59 | NUR ---
Patient assessed around 1929. Tearful, complaining of level 8 pain to right arm and leg. Given PRN [place]. Changed in bed, and new purewick placed. Repositioned in bed. Voices no further questions, needs, or concerns at this time. In bed with call light within reach.
[2022-07-15 05:13] VITALS: BP 114/64; PULSE 71; TEMP 97.5
--- NOTE | 2022-07-15 06:29 | NUR ---
Patient has denied having any further pain or discomfort this shift. Voices no questions, needs, or concerns. In bed with call light within reach.
--- NOTE | 2022-07-15 07:17 | NUR ---
BEDSIDE REPORT DONE ORDER. PATIENT RESTING IN BED WITH CALL LIGHT IN REACH.
--- NOTE | 2022-07-15 10:27 | NUR ---
ASSESSMENT DONE ORDER. PATIENT ALERT AND ORIENTED. LUNG CLEAR IN ALL LOBES. BOWEL SOUND ACTIVE IN ALL 4 QUADS. PATIENT HAS BEEN HAVING ALOT OF PAIN ON UPPER RIGHT ARM. [place] WAS GIVEN ORDER.
[2022-07-15 17:57] VITALS: BP 134/87; PULSE 78; TEMP 98.9
--- NOTE | 2022-07-15 18:25 | NUR ---
PATIENT BLOOD SUGAR HAS BEEN IN GOOD RANGE. EDUCATE TO EAT MORE PROTEIN AND NOT JUST BREAD. PATIENT HAD 2 SERBIAN MUFFEN AND PINEAPPLE FOR DINNER. PATIENT ALSO URINE IS SLIGHLY DARKER THAN NORMAL. EDUCATION TO DRINK MORE WATER TO HELP WITH KIDNEY. PATIENT UNDERSTOOD.
--- NOTE | 2022-07-16 00:53 | NUR ---
PATIENT ASSESSED AND GIVEN NIGHTLY MEDICATIONS. SHE IS AOX4 AND PLEASANT TO SPEAK WITH. HAS MINIMAL PAIN AT THIS TIME. VOLTAREN GEL APPLIED TO RIGHT LEG. BLOOD GLUCOSE WAS 160, TREATED WITH 4 UNITS OF SHORT ACTING INSULIN AND GIVEN LONG ACTING INSULIN. PUREWICK IN PLACE WITH KAVYA OUTPUT, FLUIDS WERE ENCOURAGED. SHE IS CURRENTLY SLEEPING. BED IN LOWEST POSITION. CALL LIGHT IN REACH. FALL RISK APPLICABLE.
--- NOTE | 2022-07-16 01:44 | NUR ---
Patient care, medication administration and nursing documentation occurred during a Daylight Savings Time Change.
--- NOTE | 2022-07-16 04:20 | NUR ---
PATIENT RESTING AT THIS TIME. FACES SCORE OF 0/10. CALL LIGHT IN REACH. BED IN LOWEST POSITION.
[2022-07-16 05:37] VITALS: BP 152/59; PULSE 79; TEMP 98
--- NOTE | 2022-07-16 07:07 | NUR ---
BEDSIDE REPORT DONE ORDER. PATIENT RESTING IN BED
--- NOTE | 2022-07-16 10:33 | NUR ---
ASSESSMENT DONE ORDER. PATIENT ALERT AND ORIENTED X 4 WITH NO ISSUE. NO PAIN AT THIS TIME. PATIENT IS RESTING AT THIS TIME. LUNG CLEAR. BOWEL SOUND ACTIVE.
[2022-07-16 18:02] VITALS: BP 137/72; PULSE 79; TEMP 98.2
--- NOTE | 2022-07-16 19:00 | NUR ---
RECEIVED CHANGE OF SHIFT REPORT FROM DAY SHIFT RN.
[2022-07-17 05:50] VITALS: BP 123/52; PULSE 84; TEMP 97.9
--- NOTE | 2022-07-17 06:39 | NUR ---
CHANGE OF SHIFT REPORT GIVEN TO DAY SHIFT RNVELVET.
--- NOTE | 2022-07-17 07:07 | NUR ---
Shift report received from assistant county engineer RN
--- NOTE | 2022-07-17 09:06 | NUR ---
Pt is off the unit for OT and PT. OT called to report that pt is requesting pain medication. [place] administered per PRN order.
--- NOTE | 2022-07-17 12:24 | NUR ---
Pt had a non-bloody emesis x 1. She denies stomach pain or nausea. No chest pain or general pain/discomfort. Pt said the emesis happenend w/out warning. Zofran given per PRN order. Will continue to monitor.
--- NOTE | 2022-07-17 12:43 | NUR ---
Pt resting supine in bed. Continues to deny abd. pain or nausea. Pt declining her afternoon PT today. PT notified.
--- NOTE | 2022-07-17 14:46 | NUR ---
Cyber Systems Engineer met with PAtient to discuss discharge planning. SW discussed PAtient's request to meet with Finance office, PAtient was greatful for the referral and reported being tired. SW will continue to follow.
[2022-07-17 18:34] VITALS: BP 100/48; PULSE 78; TEMP 97.7
--- NOTE | 2022-07-17 18:48 | NUR ---
RECEIVED CHANGE OF SHIFT REPORT FROM DAY SHIFT RN.
[2022-07-17 22:45] VITALS: BP 103/39; PULSE 82
--- NOTE | 2022-07-17 22:45 | NUR ---
PATIENT COMPLAINING OF R CHEST PAIN UNDER R BREAST WITH DEEP BREATHS, VS TAKEN OF BP 103/39 LUE AND RETAKEN AT 96/43 WITH HR OF 82, OX SAT OF 97 PERCENT. SKIN WARM DRY. INFORMED PROVIDER OF PATIENT C/O. ORDERS ENTERED BY PROVIDER, RT INFORMED OF STAT EKG, PATIENT INFORMED OF EKG AND LABS TO BE DRAWN.
[2022-07-17 22:46] VITALS: BP 96/43
[2022-07-17 23:29] VITALS: BP 140/48; PULSE 77
--- NOTE | 2022-07-18 01:40 | NUR ---
PATIENT SLEEPING, DOES NOT WAKE WHEN DOOR TO ROOM IS OPENED BY NURSING ON ROUNDS. BREATHING NONLABORED AND EVEN. EXIT ALARM ON AND CALL LIGHT IN REACH.
--- NOTE | 2022-07-18 04:00 | NUR ---
PATIENT HAD EMESIS OF SMALL AMOUNT BILE LIKE LIQUID THAT PATIENT REPORTED HAD COME ON SUDDENLY AND DENIED FURTHER COMPLAINTS OF NAUSEA AT THIS TIME. DENIES CHEST PAIN AT THIS TIME AND SOA.
[2022-07-18 05:25] VITALS: BP 118/55; PULSE 79; TEMP 97.9
--- NOTE | 2022-07-18 07:00 | NUR ---
CHANGE OF SHIFT REPORT GIVEN TO DAY SHIFT RNVELVET.
--- NOTE | 2022-07-18 07:09 | NUR ---
Shift report received from brazing machine tender RN
--- NOTE | 2022-07-18 15:56 | NUR ---
Food Critic collaborated with Sophie at [facility] who confirmed patient does not have SNF benefits through [employer]. SW will follow up with patient and fax referrals for Medicaid pending placement.
[2022-07-18 17:47] VITALS: BP 107/42; PULSE 84; TEMP 98.2
--- NOTE | 2022-07-18 19:26 | NUR ---
RECEIVED CHANGE OF SHIFT REPORT FROM DAY SHIFT RN.
--- NOTE | 2022-07-18 19:34 | NUR ---
PATIENT RESTING QUIETLY IN BED, PLAYING CARD GAME, EXIT ALARM ON, CALL LIGHT IN REACH. DENIES ANY NEEDS OR COMPLAINTS.
[2022-07-19 05:50] VITALS: BP 126/58; PULSE 74; TEMP 97.9
--- NOTE | 2022-07-19 07:22 | NUR ---
CHANGE OF SHIFT REPORT GIVEN TO DAY SHIFT RNANTONY.
--- NOTE | 2022-07-19 16:13 | NUR ---
Systems Analysis Manager met with PAtient to review treatment team notes as well as discuss discharge planning. SW collaborated with Patient in the review of her treatment team notes, identifying areas of improvment and declines in performance. SW briefed Patient that the SW team is progressing with he rreferrals to SNF and will update patient as information is provided.
[2022-07-19 18:16] VITALS: BP 120/54; PULSE 77; TEMP 97.4
--- NOTE | 2022-07-19 19:50 | NUR ---
PATIENT IS RESTING IN BED.PATIENT IS DEPENDENT ON STAFF FOR ADLS.PATIENT NEEEDS HELP APPLYING PEANUT BUTTER ON HER CRACKERS.PATIENT REPORTS PAIN MEDS GIVEN PER JUL.PATIENT IS INCONTINENT PUREWICK IN PLACE FOR THE NIGHT.BED ALARM IS ON.NO OTHER NEEDS AT THIS TIME.
[2022-07-20] VITALS (7 sets, daily range): BP systolic 91–130; BP diastolic 42–58; PULSE 77–98; TEMP 97.4–98.5
--- NOTE | 2022-07-20 02:40 | NUR ---
PATIENT REPORTS OF CHEST PAINS AT THE EPIGASTRIC AREA .PATIENT STATES THAT SHE FEELS SOME CHEST TIGHTNESS.NIGHT PROVIDER WAS NOTIFIED.SEE ORDERS.VITALS TAKEN WERE T 97.5 P 78 BP 106/42 RR 16 SPO2 95%.
[2022-07-20 03:06] LABS: BASO % 0.3 % (0.0-2.0); EOS # 0.4 K/mm3 (0.0-0.7); EOS % 3.6 % (0.0-4.0); GRAN # 6.5 K/mm3 (1.4-6.5); GRAN % 57.6 % (42.2-75.2); HEMOGLOBIN 12.2 g/dl (12.5-16.0); LYMPH # 3.5 K/mm3 (1.2-3.4); MEAN CELL VOLUME 87 fl (80.0-100.0); MEAN CORPUSCULAR HEMOGLOBIN 30 pg (27-31); MEAN CORPUSCULAR HGB CONC 35 g/dl (33.0-37.0); MEAN PLATELET VOLUME 11.1 fl (7.4-10.4); MONO # 0.8 K/mm3 (0.1-0.6); MONO % 7.1 % (1.7-9.3); PLATELET COUNT 250 K/mm3 (130-400); RED BLOOD COUNT 4.06 M/mm3 (4.10-5.30); REDCELL DISTRIBUTION WIDTH-CV 12.8 % (11.5-14.5)
[2022-07-20 03:21] LABS: CALCIUM 8.8 mg/dL (8.4-10.2); CREATININE, serum 1.05 mg/dL (0.57-1.11); HEMATOCRIT 35.4 % (37.0-47.0); MAGNESIUM 1.8 mg/dL (1.6-2.6); POTASSIUM 4.6 mmol/L (3.5-4.5)
--- NOTE | 2022-07-20 05:24 | NUR ---
PATIENT IS ASLEEP NOW.PATIENT WAS GIVEN MORPHINE PER JUL FOR CHEST PAIN.SAFETY MEASURES IN PLACE.NO OTHER NEEDS AT THIS TIME.
--- NOTE | 2022-07-20 16:23 | NUR ---
(Late Entry) On 07/19/22, Chief Orthoptist met with patient to discuss Medicaid pending placement. Patient is agreeable, however tearful. Patient would prefer a facility in [place], however is open to whatever facility can accept. LEONOR faxed referrals to [place], [place], [facility], [facility], [facility], [facility], [facility], and [facility]. [facility] declined referral as they are full at this time. [place] cannot accept Medicaid pending. [facility] in [place] is full. [facility]. [facility] declined and advised they cannot meet needs. On 07/20/22 LEONOR gave additional referrals to [facility], [facility], [facility] in [place], [facility], and [facility].
--- NOTE | 2022-07-20 17:58 | NUR ---
Shift summary 0700-present: VSS, Ox4. No add'l episodes of CP this shift. Repeat trop 0.010. Pt remains in rate controlled Afib on telemetry. Pt up to WC for breakfast. Requests PRN pain Rx in addition to scheduled meds but pain remains tolerable remainder of day. Pt does not actively move R arm/R leg, nor bear weight on R leg. Stand/pivot 2A with nursing staff. IV to L hand remains patent and intact.
--- NOTE | 2022-07-20 23:33 | NUR ---
PT VERY DROWSY. ANSWERS QUESTIONS APPROPRIATELY. RT SIDED FLACCID. DENIES CHEST PAIN. TAKES HS MEDS WHOLE WITH H20. ACCUCHECK 172. SEE MAR FOR SSI GIVEN. TELEMENTRY CONTINUES. CALL LIGHT IN REACH. BED ALARM SET. PUREWICK IN PLACE.
[2022-07-21 00:07] VITALS: BP 118/43; PULSE 76; TEMP 97.8
[2022-07-21 04:07] VITALS: BP 100/46; PULSE 71; TEMP 98.2
--- NOTE | 2022-07-21 05:31 | NUR ---
2 ASSIST TO BSC. UA OBTAINED D/T CONCENTRATED AND CLOUDY WITH STRONG ODOR. SENT TO LAB.
[2022-07-21 05:53] LABS: COLLECTION METHOD CLEAN CATCH
[2022-07-21 06:01] LABS: URINE APPEARANCE Hazy (CLEAR/HAZY); URINE COLOR Yellow (YELLOW)
[2022-07-21 06:02] LABS: URINE BLOOD 1+ (NEGATIVE); URINE GLUCOSE Negative (NEGATIVE); URINE KETONE TRACE (NEGATIVE); URINE NITRATE Positive (NEGATIVE); URINE PROTEIN(semi-quant) TRACE (NEGATIVE); URINE UROBILINOGEN 0.2 E.U/dL (0.2-1.0)
[2022-07-21 06:04] LABS: MUCOUS Present (NOT PRESENT); URINE BACTERIA Many /hpf (NONE SEEN)
[2022-07-21 07:37] VITALS: BP 133/60; PULSE 74; TEMP 97.6
[2022-07-21 12:17] VITALS: BP 111/63; PULSE 79; TEMP 97.7
[2022-07-21 15:43] VITALS: BP 107/41; PULSE 78; TEMP 97.8
--- NOTE | 2022-07-21 15:54 | NUR ---
[facility] declined referral.
[2022-07-21 19:53] VITALS: BP 102/46; PULSE 82; TEMP 97.6
--- NOTE | 2022-07-21 21:15 | NUR ---
PT IN BED, PUREWICK PLACED FOR HS. IS ALERT AND ORIENTED X4. HAS RT SIDE PARALYSIS AND REPORTS PAIN FROM SHOULDER TO RT HAND. VOLTAREN GEL APPLIED TO RT ANKLE, RT KNEE, RT HAND, RT ELBOW AND RT SHOULDER PER PT REQUEST. HS MEDS GIVEN, TAKES WITHOUT PROBLEM. HAS INT TO LT HAND, FLUSHES WELL. BED ALARM ON.
[2022-07-22 00:15] VITALS: BP 109/57; PULSE 83; TEMP 97.8
--- NOTE | 2022-07-22 02:00 | NUR ---
PT HAS LARGE SEMI LOOSE STOOL. PT NEEDS ASSIST X2 FOR TURNING AND CHANGING.
[2022-07-22 04:57] VITALS: BP 144/57; PULSE 71; TEMP 97.5
--- NOTE | 2022-07-22 06:58 | NUR ---
Shift report received from night RN. Pt sleeping supine in bed. HOB slightly elevated. Call light is in her reach. Bed alarm is on.
[2022-07-22 09:01] VITALS: BP 111/50; PULSE 76; TEMP 97.4
[2022-07-22 12:33] VITALS: BP 131/45; PULSE 76; TEMP 97.6
[2022-07-22 16:00] VITALS: BP 120/44; PULSE 71; TEMP 98.1
--- NOTE | 2022-07-22 19:43 | NUR ---
PT ASLEEP. NO DISTRESS. CALL LIGHT INREACH. BED ALARM SET.
[2022-07-22 20:49] VITALS: BP 114/52; PULSE 77; TEMP 97.8
--- NOTE | 2022-07-22 21:00 | NUR ---
PT CHEERFUL AND TALKATIVE. RT SIDED HEMAPARESIS. ABLE TO MOVE RT HAND UP TO CHIN. TAKES PO HS MEDS W/O DIFFICULTY. TELEMEMTRY CONTINUES. CALL LIGHT IN REACH. BED ALARM SET.
[2022-07-23] VITALS (7 sets, daily range): BP systolic 102–135; BP diastolic 41–66; PULSE 69–79; TEMP 97–98.1
--- NOTE | 2022-07-23 06:45 | NUR ---
SMALL AREA ON CHUX WET. PT VOIDED CLOUDY YELLOW URINE. REMOVED PUREWICK. PROVIDED PERICARE. STAGE 2 RT INNER BUTTOCK APPROX 1CM. STAGE 2 APPROX 1/2CM LT INNER BUTTOCK. SACRAL DRSG APPLIED.
--- NOTE | 2022-07-23 07:11 | NUR ---
Shift report received from welder 2nd shift RN.
--- NOTE | 2022-07-23 08:25 | NUR ---
Coccyx/sacrum assessed after sacral dressing was removed. Skin to coccyx is shiny red with denudation noted along buttocks and between buttocks. No necrotic tissue present. Pt reports itching and burning during hygiene. Skin barrier applied due to skin being constantly wet with urine/feces. Sacral dressing reapplied. Specialty air mattress ordered from [employer] for pressure ulcer prophylaxis.
--- NOTE | 2022-07-23 09:59 | NUR ---
Still waiting on arrival of specialty air mattress. Pt reporting feeling uncomfortable sitting up in the wheelchair. 2 person assist provided for pivot transfer w/ FWW from wheelchair to bed. Pt resting supine w/ HOB elevated to approx 30 degrees. She denies other needs. Call light is in her reach. Bed alarm is on.
--- NOTE | 2022-07-23 13:24 | NUR ---
Informed by [employer] that there are no specialty air mattresses available at this time.
--- NOTE | 2022-07-23 17:12 | NUR ---
Pt agreeable to a waffle air overlay mattress but does not want to get out of bed at this time.
--- NOTE | 2022-07-23 18:26 | NUR ---
Pt incontinent of urine. Previously applied sacral dressing saturated with urine. Dressing removed. Incontinence care provided. Desitin cream applied to denuded areas of skin. Pt positioned to right side lying. Purewick applied. Pt denies pain/discomfort. Denies other needs. Call light is in her reach. Bed alarm is on.
--- NOTE | 2022-07-23 21:00 | NUR ---
PT RESTING IN BED. RT SIDE HEMIPARESIS. ABLE TO MOVE RT ARM. TELEMENTRY IN PLACE. STILL AFIB. DENIES CHEST PAIN. CALL LIGHT IN REACH. BED ALARM SET.
[2022-07-24 04:17] VITALS: BP 105/67; PULSE 66; TEMP 97.5
[2022-07-24 07:40] VITALS: BP 138/52; PULSE 68; TEMP 97.8
[2022-07-24 12:03] VITALS: BP 91/52; PULSE 81; TEMP 98.9
[2022-07-24 15:56] VITALS: BP 123/60; PULSE 71; TEMP 98.5
--- NOTE | 2022-07-24 18:25 | NUR ---
Shift summary: Pt Ox4, VSS, fsbs ranged 80-140mg/dl, no SSI given. Pt emotional today, crying when happy and sad. Pt up to commode for lg BM, continues to be incontinent of urine. Placed air mattress to bed. Reports increased feeling and movement to R arm/leg. Able to touch nose with R hand. Had difficulty tolerating sitting up in WC r/t increased pain in R leg. Desitin applied to pressure wound on buttocks with each incontinent brief change.
[2022-07-25 05:08] VITALS: BP 129/51; PULSE 66; TEMP 97.8
--- NOTE | 2022-07-25 06:56 | NUR ---
Shift report received from retail shift leader RN.
--- NOTE | 2022-07-25 10:20 | NUR ---
Pt is off the unit for Group Therapy.
[2022-07-25 11:39] VITALS: BP 120/44
--- NOTE | 2022-07-25 11:41 | NUR ---
Pt is back in room after Group Therapy. She reports a RAMSAY at 6/10 pain. Tylenol given per PRN order. FSBS is 80 mg/dL. Pt stated she did not want to order lunch. Discussed w/ pt she should not skip this meal because of her current blood sugar and she is agreeable to eating a light lunch. Lunch order placed. Pt denies other needs. Call light is in her reach. Bed alarm is on.
--- NOTE | 2022-07-25 12:24 | NUR ---
Pt reporting nausea and feeling like she is going to vomit. Reglan was given at 11:37 a.m. She reports that the nausea has gone away. Pt eating a dinner roll. Sprite given. Will continue to monitor.
--- NOTE | 2022-07-25 16:35 | NUR ---
Belt Conveyor Drier gave referral to [facility] for [facility]. They have requested a copy of Medicaid application and clinical updates. Iwona with [facility] advised if patient is not established with Social Security, they may not be able to accept. SW has requested copy of Medicaid application multiple times from financial counselor and will continue to follow up.
[2022-07-25 17:23] VITALS: BP 132/58; PULSE 66; TEMP 97.2
--- NOTE | 2022-07-25 20:51 | NUR ---
pt resting in bed. meds given and assessment complete. voltaren gel applied to right arm for pain, some weakness is present. barrier cream applied to buttocks due to redness. pt denies chest pain. purewick in place. fall precautions implemented. pt denies needs at this time. call light in reach.
[2022-07-26 05:11] VITALS: BP 155/68; PULSE 67; TEMP 97.9
--- NOTE | 2022-07-26 06:58 | NUR ---
BEDSIDE REPORT DONE ORDER WITH NIGHT NURSE
--- NOTE | 2022-07-26 11:08 | NUR ---
ASSESSMENT DONE ORDER. PATIENT ALERT AND ORIENTED X [address] ISSUE[address] DR BLANC RECEIVED WORD THAT PATIENT HAS A OPEN AREA ON RIGHT COCCXY AREA. DR BLANC STATED THAT ITS A STAGE 2 OPEN AREA AND FOR US TO USE MEPLIX ON IT. REPOSITION EVER 2-3 HOURS.PATIENT ALSO HAVE AN ABASION UNDERNEATH RIGHT BREAST
--- NOTE | 2022-07-26 15:53 | NUR ---
Cell Tender Helper faxed clinical updates and Medicaid application to Iwona at [facility] for Rehab.
[2022-07-26 17:56] VITALS: BP 157/61; PULSE 71; TEMP 98.7
--- NOTE | 2022-07-26 21:30 | NUR ---
PT CRYING IN PAIN. PT REPORTED SHE CALLED FOR PAIN MED EARLIER. THIS NURSE WAS IN PTS ROOM APRROX 1 HOUR PRIOR AND SHE REPORTED NO NEEDS. PT RELATES RT ARM AND LEG HURT LEVEL 10/10. SEE MAR FOR PAIN MED GIVEN. VOLTAREN OINTMENT APPLIED. REPOSITIONED. PUREWICK IN PLACE. CALL LIGHT IN PLACE. BED ALARM SET. NO OTHER NEEDS.
--- NOTE | 2022-07-27 02:41 | NUR ---
PT SLEEPING SOUNDLY. NO DISTRESS.
[2022-07-27 05:34] VITALS: BP 125/46; PULSE 58; TEMP 97.8
--- NOTE | 2022-07-27 06:40 | NUR ---
BEDSIDE REPORT DONE ORDER WITH NIGHT NURSE LIANA
--- NOTE | 2022-07-27 10:39 | NUR ---
ASSESSMENT DONE ORDER. PATIENT ALERT AND ORIENTED. CONTINUE TO HAVE PAIN ON RIGHT SHOULDER AND LEG. PAIN MEDICATION WAS GIVEN ORDER. PATIENT BLOOD SUGAR HAS BEEN LOW FOR A FEW DAY INFORM DR BLANC ABOUT IT. PATIENT IS ABOUT 1-2 PERSON ASSISTANCE GETTING OUT OF BED ABLE TO STAND AND PIVOT TO CHAIR AND BED.
[2022-07-27 17:48] VITALS: BP 126/44; PULSE 73; TEMP 97.8
--- NOTE | 2022-07-27 22:48 | NUR ---
PT AWAKE A&O. PT COMPLAINS OF RT ARM PAIN. SEE MAR FOR PAIN MED GIVEN. APPLIED VOLTAREN. REPOSITIONED. PUREWICK IN PLACE. NO OTHER NEEDS NOTED. CALL LIGHT IN REACH. BED ALARM SET.
[2022-07-28 05:30] VITALS: BP 118/58; PULSE 68; TEMP 97.9
--- NOTE | 2022-07-28 06:47 | NUR ---
BEDSIDE REPORT DONE ORDER WITH NIGHT NURSE LIANA
--- NOTE | 2022-07-28 11:46 | NUR ---
PATIENT ALERT AND ORIENTED BUT NOT HAPPY TODAY. HAS BEEN CRYING ALL DAY SINCE WE MOVE HER. EDUCATED ABOUT BEDSORE AND MOBITLITY. LUNG SOUND CLEAR. BOWEL SOUND ACTIVE. PATIENT STATED THAT SHE ACHE ALL OVER. PLACE VOLTRAN GEL ON HER KNEE (R) AND RIGHT SHOULDER.OFFER PAIN MEDICATION BUT PATIENT REFUSED.
--- NOTE | 2022-07-28 16:23 | NUR ---
Artificial Limb Maker made contact with [facility] in [place] and [facility] in [place] and faxed clinical updates with Medicaid application. SW left message for Iwona at [facility]. #[phone]
[2022-07-28 17:51] VITALS: BP 120/42; PULSE 81; TEMP 98.9
--- NOTE | 2022-07-28 19:45 | NUR ---
RECEIVED CHANGE OF SHIFT REPORT FROM DAY SHIFT RN
[2022-07-29 05:37] VITALS: BP 105/47; PULSE 68; TEMP 98.7
--- NOTE | 2022-07-29 07:16 | NUR ---
Shift report received from business operations coordinator RN.
--- NOTE | 2022-07-29 07:32 | NUR ---
CHANGE OF SHIFT REPORT GIVEN TO DAY SHIFT RNVELVET.
--- NOTE | 2022-07-29 08:44 | NUR ---
Pt awake and sitting up in bed watching television. Pt ate approx 40% of her breakfast indepedently but did order extra food items to snack on throughout the morning. She denies pain or discomfort. Voltaren applied as ordered. Butt paste applied to pressure areas to both buttocks as ordered. Pt is looking forward to going to Group Therapy this morning and feels pleased that she is able to complete small tasks using her right hand. She denies other needs. Call light is in her reach. Bed alarm is on.
--- NOTE | 2022-07-29 09:30 | NUR ---
Mod A x 2 people provided to assist pt with moving BLE over EOB. Asst x 2 people required w/ FWW for transfer from bed to wheelchair. Pt completed oral hygiene w/ set up help while seated at the sink. PRN [place] given at pt's request. Pt escorted off the unit for Group Therapy.
--- NOTE | 2022-07-29 10:58 | NUR ---
Pt back in her room after Group Therapy. She reports having RLE pain while in the gym, but it has resolved. Pt was given PRN pain medication prior to Group Therapy. Pt repositioned from wheelchair to bed at her request. Purewick is on at her request. She denies nausea/abd. pain. Denies additional needs. Call light is in her reach.
--- NOTE | 2022-07-29 11:59 | NUR ---
Sheet Sorter rounds: Patient was in her wheelchair outside her room. Sheet Sorter said helnick. Patient commented that she had met Sheet Sorter on previous days at the hospital. Exchanged well wishes for the day. The RN wheeled Patient to Physical Therapy.
[2022-07-29 17:34] VITALS: BP 106/84; PULSE 65; TEMP 98.3
--- NOTE | 2022-07-29 19:11 | NUR ---
RECEIVED CHANGE OF SHIFT REPORT FROM DAY SHIFT RN.
[2022-07-30 05:06] VITALS: BP 132/52; PULSE 63; TEMP 97.9
--- NOTE | 2022-07-30 07:21 | NUR ---
CHANGE OF SHIFT REPORT GIVEN TO DAY SHIFT RNMANDI.
--- NOTE | 2022-07-30 12:01 | NUR ---
Special Duty Nurse rounds: Patient talked about her mccabe; a visit from friends; hospital food; and then she became emotional about where she might go when she leaves the hospital. Later she also spoke about two of her brothers who are already . She enjoys her support group and looks forward to it. Special Duty Nurse provided supportive listening and a prayer.
[2022-07-30 17:07] VITALS: BP 122/50; PULSE 73; TEMP 98.6
--- NOTE | 2022-07-30 18:38 | NUR ---
Shift summary: VSS, pain well controlled, fsbs WNL. Up to WC, max A x 2, tolerates for 2 hours. Was given PRN [place] for increased pain to R leg while sitting up. No BM this shift. Continues to be incontinent of urine. Reports that she is starting to have intermittent sensation of urge, but unable to control it. Wound to R buttock cleansed and barrier cream applied. Scab is forming around edges of wound. Shift report given to ZULEMA Akbar.
--- NOTE | 2022-07-30 19:00 | NUR ---
RECEIVED CHANGE OF SHIFT REPORT FROM DAY SHIFT RN.
[2022-07-31 05:53] VITALS: BP 107/53; PULSE 85; TEMP 97.9
--- NOTE | 2022-07-31 07:09 | NUR ---
CHANGE OF SHIFT REPORT GIVEN TO DAY SHIFT RNVELVET.
--- NOTE | 2022-07-31 07:13 | NUR ---
Shift report received from welder 2nd shift RN.
--- NOTE | 2022-07-31 10:37 | NUR ---
Pt requires Mod asst x 2 people for a transfer from her wheelchair to bedside commode. Pt was continent of bowel & bladder. Pt transferred back to her wheelchair at her request for PT. She denies pain/discomfort at this time. Wants to eat a later lunch today and plans to eat after her afternoon PT session. She denies other needs. Call light is in her reach. Chair alarm is on.
--- NOTE | 2022-07-31 11:09 | NUR ---
Pt is off the unit for OT.
--- NOTE | 2022-07-31 12:30 | NUR ---
Pt has been sitting up in the recliner w/ BLE elevated since returning from OT approx 30 minutes ago. Air cushion was placed in the recliner for pressure relief. Pt repositioned to her wheelchair at her request d/t the recliner "pulling on" pressure sores on buttocks. Pt has her call light in her reach. Chair alarm is on.
--- NOTE | 2022-07-31 14:46 | NUR ---
Skin check: Butt paste applied as ordered. No open areas noted to left buttock. Stg II area remains to right buttock and in gluteal crease.
--- NOTE | 2022-07-31 15:58 | NUR ---
Coal Tram Driver faxed clinical updates and Medicaid application to Eden at [facility]. Eden advised their regional team has declined due to payer source. LEONOR met with patient to follow up. Patient has an appointment scheduled with social security for 08/25/22.
[2022-07-31 17:30] VITALS: BP 124/52; PULSE 75; TEMP 98.8
--- NOTE | 2022-07-31 20:18 | NUR ---
pt resting in bed watching tv. meds given and assessment complete. voltaren gel applied to right arm and right leg. pt repositioned in bed and mepilex applied to coccyx to relieve some pressure. purewick in place. pt denies needs at this time. call light within reach.
[2022-08-01 04:30] VITALS: BP 130/52; PULSE 72; TEMP 97.7
--- NOTE | 2022-08-01 06:51 | NUR ---
Shift report received from cut filer RN.
--- NOTE | 2022-08-01 12:15 | NUR ---
Pt sitting up in her wheelchair reading an e-book and has been tearful for the last few hours about her belongings being moved from her home and about where she will live after DC from [facility]. Pt refusing to eat lunch, states she "isn't very hungry". Pt agreeable to drinking Ensure and agreeable to eating a snack. PRN Ellen given 1144 for c/o RUE/LE pain. She denies other needs. Call light is in her reach. Chair alarm is on.
--- NOTE | 2022-08-01 16:17 | NUR ---
Grants Manager contacted Elsy at [facility] to follow up on referral. Elsy to review Medicaid application. LEONOR also faxed clinical updates.
[2022-08-01 17:45] VITALS: BP 108/48; PULSE 58; TEMP 97.6
--- NOTE | 2022-08-01 22:44 | NUR ---
pt resting in bed, incontinent of urine. hygeine provided. pt reports pain on the right side of her body, pain medication given per emar. voltaren gel applied to right arm and leg. purewick put in place. fall precautions implemented. tolerated dinner well. no other needs. call light in reach.
[2022-08-02 05:29] VITALS: BP 128/43; PULSE 72; TEMP 98.2
--- NOTE | 2022-08-02 06:59 | NUR ---
Shift report received from guitar instructor RN.
--- NOTE | 2022-08-02 08:06 | NUR ---
Pt repositioned in bed for breakfast. New Allevyn foam dressing applied to Stg II pressure area on right buttock. Butt paste applied as ordered to chelsea-area. Open area in gluteal crease nearly healed. FSBS was 79 mg/dL prior to breakfast. Will recheck after breakfast completed. Pt reporting LLE pain this morning. [place] given per PRN order. Pt denies other needs. Call light is in her reach. Bed alarm is on.
--- NOTE | 2022-08-02 14:12 | NUR ---
Pt resting supine in bed after returning from PT. Pt received a steroid inj. in her right knee around 1315 today. She denies having any rt. knee pain. Bandaid to inj. site is CDI. Pt denies other needs. Call light is in her reach. Bed alarm is on.
[2022-08-02 18:00] VITALS: BP 120/47; PULSE 74; TEMP 97.9
--- NOTE | 2022-08-02 19:14 | NUR ---
RECEIVED CHANGE OF SHIFT REPORT FROM DAY SHIFT RN.
[2022-08-03 05:51] VITALS: BP 142/68; PULSE 85; TEMP 97.6
--- NOTE | 2022-08-03 07:42 | NUR ---
CHANGE OF SHIFT REPORT GIVEN TO DAY SHIFT RNROSELINE
--- NOTE | 2022-08-03 10:02 | NUR ---
ASSESSMENT DONE ORDER. PATIENT ALERT AND ORIENTED X 4. TODAY PATIENTED NEED ABOUT 2-3 PERSON TO GET OUT OF BED AND PT WAS HARD TODAY THEN NORMAL. PATIENT TEND TO CRY WHEN SHE CAN NOT DO HER WORK LIKE SHE DID THE OTHER DAY. LUNG CLEAR BUT PATIENT DOES COUGH FROM TIME TO TIME. PATIENT TEND TO CHEW GUM. BLOOD SUGAR SLIGHTLY WOOD TODAY BUT DOCTOR INFORM THAT SHE RECEIVED A KNEE SHOT YESTERDAY AND IT WAS A CORTIZONE SHOT AND IT WILL IN CREASE THE BS.BOWEL SOUND ACTIVE BUT LAST BOWEL MOVEMENT WAS 3 DAYS AGO.
--- NOTE | 2022-08-03 17:10 | NUR ---
Unemployment Examiner met with patient to provide copy of team conference notes. Patient is tearful and feels everyone else if leaving, but not her. SW provided emotional support. LEONOR Michel assisted in faxed referral to [facility] and [facility], which each have multiple facilities.
[2022-08-03 17:15] VITALS: BP 111/73; PULSE 78; TEMP 97.8
--- NOTE | 2022-08-03 21:00 | NUR ---
PT AWAKE. RESTING IN BARIATRIC AIR BED. SEE MAR FOR PAIN MED GIVEN. ACCUCHECK [id number] SEE MAR FOR SSI. NO NEEDS AT THIS TIME. CALL LIGHT IN REACH.
[2022-08-04 06:21] VITALS: BP 141/57; PULSE 81; TEMP 98.4
--- NOTE | 2022-08-04 07:02 | NUR ---
BEDSIDE REPORT DONE ORDER WITH NIGHT NURSE LIANA
--- NOTE | 2022-08-04 09:00 | NUR ---
RECEIVED CALL FROM [facility] THAT PATIENT BLEEDING FROM HER PRIVATE PART. DID A ASSESSMENT AND NOTICES THAT HER STAGE 2 IS NOW A STAGE 1 HEALING WELL. NEW DRESSING WAS INTACT. PATIENT BLEEDING FROM INSIDE OF HER PRIVATE AREA. WIPE THE AREA DOWN MUCH WE CAN. INFORM DR BLANC AND DR SONG.DR SONG ORDER A CONSULT FOR OBGYN. SPOKE WITH DR BLANC AND HE SAID TO CALL [facility]. I CALLED AND LEFT MESSAGES FOR THEM TO RETURN CALLR EGARDING A REFERRAL.
--- NOTE | 2022-08-04 11:19 | NUR ---
ASSESSMENT DONE ORDER. PATIENT ALERT AND ORIENTED. ABLE TO GET UP WITH ASSISTANCE FROM TIME TO TIME. TODAY WAS A GOOD DAY . YESTERDAY TOOK 3 PEOPEL TO GET OUT OF THE BED. PATIENT TEND TO HAVE HER UPS AND DOWN WITH CRYING. PAIN CONTINUE TO BE ON RIGHT SIDE. CREAM VOLTEN WAS PLACE ON RIGHT KNEE AND SHOULDER.PATIENT WAS BLEEDING VIA VAGINA, DR BLANC AND DR SONG WAS AWARE. ORDER FOR OBGYN TO VISIT PATIENT.
--- NOTE | 2022-08-04 16:03 | NUR ---
patient ate 70% of her food today. pain has been about 5 through out the day. pain medication was given as order.
--- NOTE | 2022-08-04 16:31 | NUR ---
Energy Conservation Engineer spoke with Shruthi Peña, Fiber Technologistshear grinder operator for [facility] about referral. Shruthi to review referral and follow up. SW met with patient to check in and she advised she is now having blood in her urine and is feeling somewhat discouraged about that. Patient did report though that she had a good day with SHANNEN Webb. Patient advised Jon painted her nails and took her to the gift shop.
[2022-08-04 17:45] VITALS: BP 155/70; PULSE 81; TEMP 98
[2022-08-05 05:49] VITALS: BP 146/58; PULSE 73; TEMP 98.1
--- NOTE | 2022-08-05 06:49 | NUR ---
Shift report received from manufacturing supervisor 2nd shift RN.
[2022-08-05 07:03] LABS: HEMOGLOBIN 11.1 g/dl (12.5-16.0)
--- NOTE | 2022-08-05 09:48 | NUR ---
Pt is off the unit for Group Therapy.
--- NOTE | 2022-08-05 11:41 | NUR ---
Pt back in room after Group Therapy. She would like to stay up in her wheelchair for awhile longer then would like to go to bed. Pt reporting LLE pain and RUE pain - [place] given per PRN order. She denies other needs. Call light is in her reach. Chair alarm is on.
--- NOTE | 2022-08-05 12:17 | NUR ---
Pt repositioned back to bed at her request. Pt required assist x 3 people for the transfer from wheelchair to bed using a FWW. Pt requesting pain medication - [place] given per PRN order. Pt denies other needs. Call light is in her reach. Bed alarm is on.
--- NOTE | 2022-08-05 12:28 | NUR ---
Pt refusing lunch but is agreeable to eating Sherbet and a granola bar. Will offer another snack later in the shift.
[2022-08-05 17:26] VITALS: BP 129/62; PULSE 74; TEMP 97.9
--- NOTE | 2022-08-05 18:39 | NUR ---
Pt incontinent of urine in pull-up. No vaginal bleeding or hematuria noted throughout this shift today. Incontinent care provided, Desitin applied. Mepilex changed to left buttock pressure sore. Stg II pressure sore with pink wound bed, no drainage. Purewick in place. Pt denies other needs. Denies pain/discomfort. Call light is in her reach. Bed alarm set.
--- NOTE | 2022-08-05 23:40 | NUR ---
PT RESTING IN BARIATRIC BED. C/O RT SHOULER AND RT KNEE PAIN. SEE MAR FOR PAIN MED. APPLIED VOLTAREN OINTMENT. NO VAG BLEEDING NOTED. CALL LIGHT IN REACH. READY FOR SLEEP.
--- NOTE | 2022-08-06 01:39 | NUR ---
PT SLEEPING. NO DISTRESS.
[2022-08-06 05:11] VITALS: BP 124/59; PULSE 73; TEMP 97.8
--- NOTE | 2022-08-06 08:54 | NUR ---
Patient awake and alert in bed, no complaints of pain, nausea, or shortness of breath. Asked if she was ready to get out of bed, she states "maybe later." AM assessment complete, medications given. Bed in lowest position, call light within reach. No further needs at this tme.
--- NOTE | 2022-08-06 12:13 | NUR ---
METALIZING MACHINE OPERATOR consult placed by Dr. Posada. [facility] previously contacted on Sunday, provider wishes for them to be contacted again tomorrow if not yet seen.
[2022-08-06 17:02] VITALS: BP 132/57; PULSE 83; TEMP 98
--- NOTE | 2022-08-06 17:59 | NUR ---
Patient repositioned, right leg elevated. Complaints of right leg pain relieved with repositioning. Denies need for pain medication at this time. Refused lunch but ate 100% of dinner, tolerated well. Mepilex on pressure ulcer changed, barrier cream applied. New purewick applied for urinary incontinence. Scant amount of what appeared to be old blood on purewick when changed. Karyna care provided.
[2022-08-07 05:10] VITALS: BP 137/60; PULSE 68; TEMP 97.7
--- NOTE | 2022-08-07 06:53 | NUR ---
Shift report received from spark tester RN.
--- NOTE | 2022-08-07 08:47 | NUR ---
Pt assisted to wheelchair at her request. Max asst x 2 people + FWW need fro transfer from bed to wheelchair. Pt became tearful this morning when talking about a conversation she had with her brother yesterday regarding her finances. 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 Pt denies pain/discomfort at this time. Set up help provided with her breakfast tray. Call light is in her reach.
--- NOTE | 2022-08-07 09:16 | NUR ---
Pt is off the unit for PT.
--- NOTE | 2022-08-07 12:25 | NUR ---
Follow up phone call placed to [facility] re: SANDWICH MACHINE OPERATOR consult that was placed on 08/04 and on 08/06 for vaginal bleeding. No answer. Left a voice mail on nurse line requesting a callback.
--- NOTE | 2022-08-07 13:21 | NUR ---
Spoke w/ YESICA who directed me to call the on-call provider. Spoke w/ Dr. Blood who is recommending pt establish care as an outpatient once discharged.
--- NOTE | 2022-08-07 14:26 | NUR ---
Pt noted to be sobbing when nurse entered room to give scheduled pain medications. Pt stated "I didn't mean to be difficult. I just didn't want to take a shower". Pt completed a shower this afternoon with OT and pt stated that PT helped. Pt was easily redirected to talk about her "new" left arm sling and her thoughts about the sling. Pt reporting right shoulder pain is a 6/10 at rest and is 11/10 with movement/weight bearing. Pt also stating that she does not want to eat dinner this evening but is agreeable to eating a light snack dependent on her blood sugar result. Pt denies other needs. Call light is in her reach. Bed alarm is on.
--- NOTE | 2022-08-07 15:47 | NUR ---
LEONOR attempted to contact Shruthi Peña with [facility] to follow up on referral. LEONOR left her a voicemail. LEONOR contacted Bri from [facility] to follow up. Bri states that they did not receive the referral. LEONOR refaxed the referral to Bri. LEONOR met with the patient to introduce oneself and to update. The patient was resting and states she is doing okay. She had no questions or concerns for LEONOR at this time.
[2022-08-07 17:33] VITALS: BP 144/49; PULSE 70; TEMP 97.5
--- NOTE | 2022-08-07 19:00 | NUR ---
RECEIVED CHANGE OF SHIFT REPORT FROM DAY SHIFT RN.
--- NOTE | 2022-08-07 19:44 | NUR ---
PATIENT RESTING IN BED, DENIES ANY NEEDS AT THIS TIME, CALL LIGHT IN REACH.
--- NOTE | 2022-08-07 20:56 | NUR ---
PURE WICK PLACED WITH NO REPORTED COMPLAINTS FROM PATIENT, TOLERATED REPOSITIONING FROM SIDE TO SIDE WITH NO COMPLAINTS OF EXTREMITY DISCOMFORT.
[2022-08-08 05:32] VITALS: BP 165/66; PULSE 76; TEMP 97.3
--- NOTE | 2022-08-08 07:15 | NUR ---
Received shift report from the vessel slag worker nurse, ZULEMA Akbar.
--- NOTE | 2022-08-08 07:28 | NUR ---
CHANGE OF SHIFT REPORT GIVEN TO DAY SHIFT RNJIA.
--- NOTE | 2022-08-08 10:05 | NUR ---
Patient resting in bed alert and oriented. Assessment completed, patient has weakness to the left side of body, pushes and gastroenterology nurse unequal. Pulses presents, Patient denies pain at this time. Physical therapist at the bedside, assisted patient to the bedside commode. Patient had large formed bowel movement and this nurse, changed dressing at the sacral area. Patient tolerated it well. Patient has no needs at this time.
--- NOTE | 2022-08-08 10:10 | NUR ---
Patient off the unit for physical therapy.
--- NOTE | 2022-08-08 11:26 | NUR ---
SW emailed Shruthi Peña to follow up on referral. Shruthi responded that she is traveling at this time, but as soon as she gets to her destination, she will check with her communities/facilities and then get back to this SW.
--- NOTE | 2022-08-08 11:56 | NUR ---
Patient reports of pain at right arm and pain medication administered. See e-mar for documentation.
[2022-08-08 17:15] VITALS: BP 130/69; PULSE 78; TEMP 97.9
--- NOTE | 2022-08-08 18:52 | NUR ---
Patient incontinent of urine, hygiene performed, changed dressing at sacral area. Patient consumed 100% of dinner.
--- NOTE | 2022-08-08 19:13 | NUR ---
RECEIVED CHANGE OF SHIFT REPORT FROM DAY SHIFT RN.
--- NOTE | 2022-08-08 20:00 | NUR ---
OBSERVED NO RED DRAINAGE WITH PERICARE DONE, AFTER OBSERVING PURE WICK NOT IN PLACE. NEW PURE WICK PLACE TO PERIAREA WITH NO COMPLAINTS OF DISCOMFORT FROM PATIENT AFTER PLACEMENT. CALL LIGHT IN REACH, PATIENT DENIES ANY OTHER NEEDS AT THIS TIME.
[2022-08-09 06:25] VITALS: BP 156/59; PULSE 74; TEMP 97.5
--- NOTE | 2022-08-09 07:04 | NUR ---
CHANGE OF SHIFT REPORT GIVEN TO DAY SHIFT RNVELVET.
--- NOTE | 2022-08-09 07:15 | NUR ---
Shift report received from restaurant shift leader RN.
--- NOTE | 2022-08-09 08:37 | NUR ---
Pt ate 100% of breakfast with set up help. 2 person max asst provided for transfer to bed to wheelchair. Pt sitting at sink to perform oral hygine w/ set up help. PRN [place] given at her request this morning for RUE pain. ST in room to work with pt. She denies other needs. Call light is in her reach. Chair alarm is on.
--- NOTE | 2022-08-09 09:26 | NUR ---
Pt is off the unit for PT.
--- NOTE | 2022-08-09 12:17 | NUR ---
Pt transferred from wheelchair to bed at her request using 2 person assist with gait belt. Left arm sling is on. Pt incontinent of urine. No vaginal bleeding noted. Hygiene performed. Pt denies pain/discomfort. She is looking forward to a visitor this afternoon that will be bringing her lunch. She denies other needs. Call light is in her reach. Bed alarm is on.
--- NOTE | 2022-08-09 13:56 | NUR ---
Director Internal Communications followed-up with LEONOR Jeronimo and LEONOR Vázquez's referrals to [facility] and [facility] for SNF placment for Patient. LEONOR faxed and emailed [facility] the referral to LTC. [facility] clinically accepted Patient and requested financial documentation for medicaid molly. Information was sent to [facility]. [facility] accepted Patietn for LTC at their [place], [place] facility in [facility]. LEONOR faxed and emailed referral information to Shruthi at [facility]. Shruthi reports to have recieved information and requested financial information of medicaid application and asset list. Information sent to Shruthi. Shruthi report to have sent referral information to 8 acilities in the [facility] and is awating responses. Patient accepted to [facility]. LEONOR will follow to coordinate transport.
--- NOTE | 2022-08-09 15:27 | NUR ---
LEONOR met with the patient to present and review the IPR Team Conference Note and informed her of acceptance at [facility] in [place], [place]. The patient verbalized understanding and is agreeable to going to the facility. The patient expressed her gratitude and how she is going to miss everyone here. She became tearful. SW provided support.
--- NOTE | 2022-08-09 16:12 | NUR ---
Blood sugar 74 mg/dL. No sx of hypogylcemia. Mutual juice given. Will continue to monitor.
--- NOTE | 2022-08-09 17:14 | NUR ---
Pt refusing dinner. Okay to hold Metformin per Dr. Luis.
[2022-08-09 17:42] VITALS: BP 142/65; PULSE 81; TEMP 97.2
--- NOTE | 2022-08-09 22:09 | NUR ---
PT RESTING IN BARIATRIC AIR BED. TALKING ON PHONE EARLIER. RT SIDED WEAKNESS. RT ARM BRACE IN PLACE. DENIES NEED FOR PAIN MEDICATION AT THIS TIME. VOTAREN OINTMENT TO LEFT KNEE. PUREWICK IN PLACE. CALL LIGHT IN REACH.
[2022-08-10 05:54] VITALS: BP 127/51; PULSE 79; TEMP 97.6
[2022-08-10] MEDS ORDERED: ELIQUIS 5MG PO (09:23)
[2022-08-10] MEDS ORDERED: LIPITOR 40MG TA40 MG PO (09:24)
[2022-08-10] MEDS ORDERED: ZESTRIL 10MG10 MG PO (09:24)
[2022-08-10] MEDS ORDERED: TOPROL XL 25MG25 MG PO (09:24)
[2022-08-10] MEDS ORDERED: ASPIRIN 81M81 MG/TA2 PO (09:24)
[2022-08-10] MEDS ORDERED: CORDARONE200 MG/TAB PO (09:24)
[2022-08-10] MEDS ORDERED: NEURONTIN300 MG/CAP PO (09:25)
[2022-08-10] MEDS ORDERED: TYLENOL 325MG325 MG PO (09:25)
[2022-08-10] MEDS ORDERED: REMERON 15M15 MG/TA1 PO (09:26)
[2022-08-10] MEDS ORDERED: ZOLOFT 25MG25 MG PO (09:26)
[2022-08-10] MEDS ORDERED: ZOLOFT 50MG50 MG PO (09:27)
[2022-08-10] MEDS ORDERED: GLUCOPHAGE1000 MG PO (09:28)
[2022-08-10] MEDS ORDERED: PROTONIX 40MG T40 MG PO (09:28)
[2022-08-10] MEDS ORDERED: PROBIOTIC ACID1 EAC3 PO (09:28)
[2022-08-10] MEDS ORDERED: REGLAN 5MG T5 MG/TAB PO (09:28)
[2022-08-10] MEDS ORDERED: DESITIN MAXIMUM S40% TP (09:29)
[2022-08-10] MEDS ORDERED: LEVEMIR100 U/ML SQ (09:29)
[2022-08-10] MEDS ORDERED: DITROPAN XL 5MG5 M1 PO (09:30)
[2022-08-10] MEDS ORDERED: VOLTAREN GEL 1%1 TU TP (09:31)
[2022-08-10] MEDS ORDERED: INSULIN AS100 UNIT/2 SQ (09:36)
[2022-08-10] MEDS ORDERED: NORCO 325 MG-51 TAB PO (09:36)
[2022-08-10] MEDS ORDERED: Lioresal PO (09:36)
--- NOTE | 2022-08-10 11:21 | NUR ---
Has lack of transportation kept you from medical appts, meetings, work, or from getting things needed for daily living? NO How often do you feel lonely or isolated from those around you? NEVER Over the past 5 days, how much of the time has pain made it hard for you to sleep? OCCASIONALLY Over the past 5 days, how often have you limited your participation in therapy due to pain? RARELY/NOT AT ALL Over the past 5 days, how often have you limited your day-to-day activities because of pain? RARELY/NOT AT ALL
--- NOTE | 2022-08-10 13:21 | NUR ---
Discharge QIM scores were reviewed by the team. Code of 3 chosen for rolling left to right was determined by team discussion to be the most usual performance for this patient during the discharge assessment period. Code of 3 chosen for lying to sitting on side of bed was determined by team discussion to be the most usual performance for this patient during the discharge assessment period. Code of 3 chosen for sit to stand was determined by team discussion to be the most usual performance for this patient during the discharge assessment period. Code of 3 chosen for chair/bed to chair transfer was determined by team discussion to be the most usual performance for this patient during the discharge assessment period. Code of 88 chosen for walk 10 feet was determined by team discussion to be the most usual performance for this patient during the discharge assessment period.--Chastity Paul, PD
--- NOTE | 2022-08-10 14:30 | NUR ---
PATIENT DISCHARGING WITH [facility]. GAVE INFO PACKET TO [facility]. CALLED REPORT TO NURSE AT ACCEPTING FACILITY. PATIENT IS DRESSED, PACKED AND ESCORTED OUT VIA WC. PATIENT DISCHARGED.
== END 2022-08-10 14:30 | DRG 57 ==
PROVIDERS: Internal Medicine; Nurse Practitioner Family; Physician Assistant; ADMIT Physical Medicine & Rehabilitation Sports Medicine
DX: I69.351 Hemiplegia and hemiparesis following cerebral infarction affecting right dominant side (principal); Z68.44 Body mass index [BMI] 60.0-69.9, adult; F15.951 Other stimulant use, unspecified with stimulant-induced psychotic disorder with hallucinations; I69.393 Ataxia following cerebral infarction; I69.322 Dysarthria following cerebral infarction; I48.91 Unspecified atrial fibrillation; I16.0 Hypertensive urgency; Z66 Do not resuscitate; F41.9 Anxiety disorder, unspecified; F32.A Depression, unspecified; I10 Essential (primary) hypertension; L89.312 Pressure ulcer of right buttock, stage 2; R32 Unspecified urinary incontinence; N93.9 Abnormal uterine and vaginal bleeding, unspecified; N95.0 Postmenopausal bleeding; S20.111A Abrasion of breast, right breast, initial encounter; X58.XXXA Exposure to other specified factors, initial encounter; R26.89 Other abnormalities of gait and mobility; E11.43 Type 2 diabetes mellitus with diabetic autonomic (poly)neuropathy; K31.84 Gastroparesis; Y92.239 Unspecified place in hospital as the place of occurrence of the external cause; E66.01 Morbid (severe) obesity due to excess calories; M25.572 Pain in left ankle and joints of left foot; M25.571 Pain in right ankle and joints of right foot; M25.551 Pain in right hip; R19.7 Diarrhea, unspecified; Z20.822 Contact with and (suspected) exposure to COVID-19; Z79.01 Long term (current) use of anticoagulants; Z79.899 Other long term (current) drug therapy; Z79.4 Long term (current) use of insulin; Z79.82 Long term (current) use of aspirin; Z79.84 Long term (current) use of oral hypoglycemic drugs; Z73.6 Limitation of activities due to disability
CPT/HCPCS: A9284; J0696; J1815; J2270; J3301; J7030; J7512